=== PATIENT | female | born 1930 | race Caucasian/White ===

== ENCOUNTER 2016-10-14 12:28 | Inpatient (IN) | payer MEDICARE, OTHER ==
[2016-10-14] MEDS ORDERED: AMPICILLIN/SULBACTAM 3 GM in SODIUM CHLORIDE 0.9% MINIBAG 100 ML IV STA (14:23)
[2016-10-14] MEDS ORDERED: ONDANSETRON 4 MG/2 ML VIAL IVP PRN (15:07)
[2016-10-14] MEDS ORDERED: SODIUM CHLORIDE FLUSH 0.9% 10 ML SYRINGE IVP PRN (15:07)
[2016-10-14] MEDS ORDERED: SODIUM CHLORIDE 0.9% 1,000 ML IV ONE (15:21)
[2016-10-14] MEDS ORDERED: SODIUM CHLORIDE 0.9% 1,000 ML IV SCH (16:00)
[2016-10-14] MEDS: KETOROLAC 15 MG/ML VIAL IVP PRN (17:57)
[2016-10-14] MEDS ORDERED: AMPICILLIN/SULBACTAM 1.5 GM in SODIUM CHLORIDE 0.9% MINIBAG 100 ML IV SCH (18:00)
[2016-10-14] MEDS: SODIUM CHLORIDE 0.9% 1,000 ML IV SCH (18:16)
[2016-10-14] MEDS ORDERED: MORPHINE 2 MG/ML SYRINGE IVP PRN (18:53)
[2016-10-14] MEDS: AMPICILLIN/SULBACTAM 1.5 GM in SODIUM CHLORIDE 0.9% MINIBAG 100 ML IV SCH (20:36)
[2016-10-14] MEDS: SODIUM CHLORIDE FLUSH 0.9% 10 ML SYRINGE IVP SCH (20:40)
[2016-10-14] MEDS ORDERED: diphenhydrAMINE 25 MG CAPSULE PO PRN (20:42)
[2016-10-15] MEDS: SODIUM CHLORIDE 0.9% 1,000 ML IV SCH ×2 (01:00→22:03)
[2016-10-15] MEDS: AMPICILLIN/SULBACTAM 1.5 GM in SODIUM CHLORIDE 0.9% MINIBAG 100 ML IV SCH ×4 (01:47→19:58)
[2016-10-15] MEDS ORDERED: ACETAMINOPHEN 325 MG TABLET PO PRN (02:05)
[2016-10-15] MEDS: SODIUM CHLORIDE FLUSH 0.9% 10 ML SYRINGE IVP SCH ×3 (05:03→20:05)
[2016-10-15] MEDS: LOSARTAN 50 MG TABLET PO SCH (08:40)
[2016-10-15] MEDS: METOPROLOL SUCCINATE 25 MG TABLET PO SCH (08:40)
[2016-10-15] MEDS: ENTOCORT 3 MG PO SCH (08:40)
[2016-10-15] MEDS: KETOROLAC 15 MG/ML VIAL IVP PRN (08:40)
[2016-10-15] MEDS: POLYETHYLENE GLYCOL 3350 17 GM PACKET PO SCH (08:42)
[2016-10-15] MEDS: POTASSIUM CHLORIDE 20 MEQ TABLET PO SCH ×2 (09:32→20:00)
[2016-10-16] MEDS: AMPICILLIN/SULBACTAM 1.5 GM in SODIUM CHLORIDE 0.9% MINIBAG 100 ML IV SCH ×2 (02:01→08:43)
[2016-10-16] MEDS: SODIUM CHLORIDE FLUSH 0.9% 10 ML SYRINGE IVP SCH (07:48)
[2016-10-16] MEDS: LOSARTAN 50 MG TABLET PO SCH (08:44)
[2016-10-16] MEDS: POTASSIUM CHLORIDE 20 MEQ TABLET PO SCH (08:44)
[2016-10-16] MEDS: METOPROLOL SUCCINATE 25 MG TABLET PO SCH (08:44)
[2016-10-16] MEDS: POLYETHYLENE GLYCOL 3350 17 GM PACKET PO SCH (08:44)
[2016-10-16] MEDS: ENTOCORT 3 MG PO SCH ×2 (08:46→11:39)
[2016-10-16] MEDS ORDERED: ENOXAPARIN 30 MG/0.3 ML SYRINGE SUBQ SCH (09:00)
== END 2016-10-16 14:25 | disposition home or self-care (01) | DRG 392 ==
DX: K57.92 Diverticulitis of intestine, part unspecified, without perforation or abscess without bleeding (principal); E78.00 Pure hypercholesterolemia, unspecified; M10.9 Gout, unspecified; E87.6 Hypokalemia; I10 Essential (primary) hypertension; K52.839 Microscopic colitis, unspecified; Z79.899 Other long term (current) drug therapy

== ENCOUNTER 2016-11-11 14:48 | Outpatient (CLI) | payer MEDICARE, OTHER | END 2016-11-11 14:49 | disposition critical access hospital (66) | LOC: EMS 14:48 | PROVIDERS: ATTEND Surgery | DX: S01.112A Laceration without foreign body of left eyelid and periocular area, initial encounter (principal); W01.198A Fall on same level from slipping, tripping and stumbling with subsequent striking against other object, initial encounter; Y92.480 Sidewalk as the place of occurrence of the external cause | CPT/HCPCS: A0425; A0429 ==

== ENCOUNTER 2016-11-11 15:13 | Emergency (ER) | payer MEDICARE, OTHER ==
[2016-11-11] MEDS ORDERED: TETANUS/DIPHTHERIA/PERTUSSIS 0.5 ML SYRINGE IM ONE ×2 (15:40→15:55)
--- NOTE | 2016-11-11 16:15 | ED Physician Documentation ---
PD HPI Fall - Stated complaint Stated Complaint: GLF - Chief complaint Chief Complaint: Laceration - History obtained from History obtained from: Patient, Family, EMS - History of Present Illness Mechanism of injury: Tripped (over a step) Fall distance: Standing position Where injury occurred: Street Timing - onset: How many hours ago (1) Injury(ies) location: Head, Left Lower Extremity (knee), Left Hand Pain level max: 3 Pain level now: 3 Quality of pain: Pain, Aching, Dull Associated symptoms: No: LOC, AMS, Amnesia, Seizures, Ear drainage, Nasal drainage, Neck pain, Weakness, Paresthesias, Dyspnea, Nausea / vomiting Symptoms improve with: Rest Worsens with: Movement, Palpation Contributing factors: No: Anticoagulated, Intoxicated Recently seen: Not recently seen Review of Systems Ten Systems: 10 systems reviewed and negative Constitutional: denies: Fever, Chills Eyes: denies: Decreased vision, Photophobia Ears: denies: Ear pain Nose: denies: Rhinorrhea / runny nose, Congestion Throat: denies: Sore throat GI: denies: Nausea, Vomiting, Diarrhea Skin: denies: Rash Musculoskeletal: denies: Neck pain, Back pain Neurologic: denies: Focal weakness, Numbness, Confused, Altered mental status, LOC PD PAST MEDICAL HISTORY - Past Medical History Past Medical History: Yes Cardiovascular: High cholesterol GI: C.difficile, Diverticulitis, Ulcerative colitis Musculoskeletal: Gout - Past Surgical History General: Cholecystectomy - Present Medications Home Medications: Ambulatory Orders Medication Instructions Recorded Confirmed Allopurinol 300 mg PO DAILY 10/14/16 10/14/16 Budesonide [Entocort EC] 3 mg PO DAILY 10/14/16 10/14/16 Losartan [Cozaar] 50 mg PO DAILY 10/14/16 10/14/16 Metoprolol Succinate 25 mg PO DAILY 10/14/16 10/14/16 - Allergies Allergies/Adverse Reactions: Allergies Allergy/AdvReac Type Severity Reaction Status Date / Time ciprofloxacin [From Cipro] Allergy Unknown Verified 10/14/16 14:11 ciprofloxacin HCl * Allergy Unknown Verified 10/14/16 14:11 [From Cipro] hydrocodone bitartrate * Allergy Unknown Verified 10/14/16 14:11 [From Vicodin] metronidazole [From Flagyl] Allergy Unknown Verified 10/14/16 14:11 bio Allergy Unknown Uncoded 10/14/16 14:11 - Social History Does the pt smoke?: No Smoking Status: Never smoker Does the pt drink ETOH?: No Does the pt have substance abuse?: No - Immunizations Immunizations are current?: Yes PD ED PE NORMAL - Vitals Vital signs reviewed: Yes - General General: Alert and oriented X 3, No acute distress, Well developed/nourished - HEENT HEENT: PERRL, EOMI, Moist mucous membranes, Other (2 cm laceration to the left upper forehead) - Neck Neck: Supple, no meningeal sign, No bony TTP - Cardiac Cardiac: RRR, Strong equal pulses - Respiratory Respiratory: No respiratory distress, Clear bilaterally - Abdomen Abdomen: Soft, Non tender, Non distended - Back Back: No spinal TTP - Derm Derm: Warm and dry - Extremities Extremities: Other (Tenderness palpation over the fifth metacarpal of the left hand. Otherwise normal examination of the hand and wrist. Also has abrasions to the left knee, but no bony tenderness. Neurovascularly intact) - Neuro Neuro: Alert and oriented X 3 - Psych Psych: Normal mood, Normal affect Results - Vitals Vitals: Vital Signs - 24 hr 11/11/16 11/11/16 15:14 16:18 Temperature 36.9 C Heart Rate 79 Respiratory 16 16 Rate Blood Pressure 231/100 H 182/63 H O2 Saturation 98 97 Oxygen O2 Source Room air - Rads (name of study) L hand xray Radiology: Prelim report reviewed, EMP read contemporaneously, See rad report ( No acute fracture or dislocation) head CT Radiology: Prelim report reviewed, EMP read contemporaneously, See rad report ( Generalized age-related cortical atrophic changes without evidence of acute intracranial abnormality. ) Procedures - Laceration (location) L forehead Length in cm: 2 Wound type: Linear, Into muscle, Clean, Other (galea intact) Neurovascular status: Sensory intact, Motor intact, Vascular intact Anesthesia: Marcaine 0.5% with epi Wound Preparation: Irrigated copiously NS, Wound explored, To the base. No: FB identified, FB removed Skin layer closure: Nylon, Interrupted, Size #-0 - enter number (4) Other: Patient tolerated well, No complications, Neurovascular intact, Dressing applied, Tetanus booster given (tdap) Complexity: Simple PD MEDICAL DECISION MAKING - ED course Complexity details: reviewed results, re-evaluated patient, considered differential, d/w patient, d/w family ED course: Patient is an 86-year-old female status post a ground-level fall earlier today. Laceration was repaired. No acute findings on x-ray or head CT. Ambulating well in the emergency department. Declines pain medication here. Head injury instructions given at bedside. Patient and family counseled regarding signs and symptoms for which I believe and urgent re-evaluation would be necessary. Patient with good understanding of and agreement to plan and is comfortable going home at this time This document was made in part using voice recognition software. While efforts are made to proofread this document, sound alike and grammatical errors may occur. Departure - Departure Disposition: 01 Home, Self Care Clinical Impression: Facial laceration Qualifiers: Encounter type: initial encounter Qualified Code(s): S01.81XA - Laceration without foreign body of other part of head, initial encounter Head injury Qualifiers: Encounter type: initial encounter Qualified Code(s): S09.90XA - Unspecified injury of head, initial encounter Hand contusion Qualifiers: Encounter type: initial encounter Laterality: left Qualified Code(s): S60.222A - Contusion of left hand, initial encounter Condition: Good Instructions: ED Head Injury Closed, ED Laceration Facial Sutr Tape Follow-Up: Tyesha Zeng MD [Primary Care Provider] - (in 7-10 days for suture removal. ) Comments: Your CT and xrays are normal today. You need to take your blood pressure medications at home. You can use motrin or tylenol for pain. Return if you worsen. Discharge Date/Time: 11/11/16 17:14
[2016-11-11 16:18] VITALS: BP 182/63
--- NOTE | 2016-11-11 16:46 | XRAY Preliminary Report ---
Exam: XR Hand 3 View LT IMPRESSION: No evidence of fracture or dislocation. [facility] SITE ID: [id number]
--- NOTE | 2016-11-11 16:49 | XRAY Report ---
EXAM: LEFT HAND RADIOGRAPHY EXAM DATE: 11/11/2016 04:34 PM. CLINICAL HISTORY: Fall, hand pain. COMPARISON: None. TECHNIQUE: 3 views. FINDINGS: Bones: No fracture or focal bony lesion. Bones are osteopenic. Joints: No evidence of dislocation. There is fusion of the fifth distal interphalangeal joint. Soft Tissues: No unexpected soft tissue findings. IMPRESSION: No evidence of fracture or dislocation. [facility] Referring Provider Line: [phone] SITE ID: [id number]
--- NOTE | 2016-11-11 16:53 | CT Preliminary Report ---
Exam: CT Head W/O IMPRESSION: Generalized age-related cortical atrophic changes without evidence of acute intracranial abnormality. [facility] SITE ID: [id number]
--- NOTE | 2016-11-11 16:55 | CT Report ---
EXAM: CT HEAD EXAM DATE: 11/11/2016 04:39 PM. CLINICAL HISTORY: Head injury. COMPARISON: None. TECHNIQUE: Multiaxial CT images were obtained from the foramen magnum to the vertex. IV contrast: Non e. Reformats: Coronal. In accordance with CT protocol optimization, one or more of the following dose reduction techniques w ere utilized for this exam: automated exposure control, adjustment of mA and/or KV based on patient s ize, or use of iterative reconstructive technique. FINDINGS: Parenchyma: No intraparenchymal hemorrhage. No evidence of mass, midline shift, or CT findings of acu te infarction. Velez-white differentiation is distinct. Extraaxial Spaces: Normal for age. No subdural or epidural collections identified. Ventricles: The ventricles and cortical sulci are enlarged, consistent with age-related tissue loss. Sinuses: Imaged paranasal sinuses, orbits, and mastoids show no significant abnormality. Bones: No evidence of fracture or calvarial defect. Other: Mild chronic microangiopathic white matter changes are evident. IMPRESSION: Generalized age-related cortical atrophic changes without evidence of acute intracranial abnormality. [facility] Referring Provider Line: [phone] SITE ID: [id number]
== END 2016-11-11 17:14 | disposition home or self-care (01) ==
LOC: EDUNIT# → ED 15:13
DX: S01.81XA Laceration without foreign body of other part of head, initial encounter (principal); S09.90XA Unspecified injury of head, initial encounter; S60.222A Contusion of left hand, initial encounter; S80.212A Abrasion, left knee, initial encounter; W01.0XXA Fall on same level from slipping, tripping and stumbling without subsequent striking against object, initial encounter; Y92.480 Sidewalk as the place of occurrence of the external cause; Z23 Encounter for immunization
CPT/HCPCS: 12011; 70450; 90471; 99283

== ENCOUNTER 2017-03-12 23:32 | Outpatient (CLI) | payer MEDICARE, OTHER | END 2017-03-12 23:33 | disposition critical access hospital (66) | LOC: EMS 23:32 | PROVIDERS: ATTEND Surgery | DX: M25.552 Pain in left hip (principal); W01.0XXA Fall on same level from slipping, tripping and stumbling without subsequent striking against object, initial encounter; Y92.009 Unspecified place in unspecified non-institutional (private) residence as the place of occurrence of the external cause | CPT/HCPCS: A0425; A0429 ==

== ENCOUNTER 2017-03-12 23:45 | Inpatient (IN) | payer MEDICARE, OTHER ==
[2017-03-12] MEDS ORDERED: ACETAMINOPHEN 325 MG TABLET PO STA (23:57)
[2017-03-13] MEDS ORDERED: ACETAMINOPHEN 325 MG TABLET PO ONE (00:07)
--- NOTE | 2017-03-13 01:16 | ED Physician Documentation ---
PD HPI LOWER EXT INJURY - Stated complaint Stated Complaint: FALL/HIP PAIN - Chief complaint Chief Complaint: Ext Problem - History obtained from History obtained from: Patient, Family, EMS - History of Present Illness PD HPI LOW EXT INJURY LOCATION: Left, Hip Type of injury: Fall Where injury occurred: Home Timing - onset: How many minutes ago (30) Timing - details: Abrupt onset Improved by: Immobilization Worsened by: Moving, Palpating Associated symptoms: Tingling, Discolored Contributing factors: No: Anticoagulated, Prior ortho surgery Similar symptoms before: Has not had sx before Recently seen: Not recently seen - Additional information Additional information: Patient is an 86 year old female presenting to the emergency department for left hip pain. According to patient and family she was walking to go to bed, and turned around because she forgot her water glass and caught her foot on the carpet, tripping and landing on her left side. Patient states that she has pain in her left hip and her left knee. Review of Systems Constitutional: denies: Fever, Chills Eyes: denies: Loss of vision, Decreased vision Ears: denies: Ear pain, Drainage/discharge Nose: denies: Epistaxis Throat: denies: Dental pain / toothache Cardiac: denies: Chest pain / pressure, Palpitations Respiratory: denies: Dyspnea, Cough GI: denies: Nausea, Vomiting : reports: Reviewed and negative Skin: denies: Lesions, Abrasion (s) Musculoskeletal: reports: Extremity pain, Joint pain, Extremity swelling, Joint swelling, Pain with weight bearing Neurologic: denies: Syncope, Headache, Head injury, LOC Immunocompromised: denies: Immunocompromised PD PAST MEDICAL HISTORY - Past Medical History Cardiovascular: High cholesterol GI: C.difficile, Diverticulitis, Ulcerative colitis Musculoskeletal: Gout - Past Surgical History General: Cholecystectomy - Present Medications Home Medications: Ambulatory Orders Medication Instructions Recorded Confirmed Allopurinol 300 mg PO DAILY 10/14/16 10/14/16 Budesonide [Entocort EC] 3 mg PO DAILY 10/14/16 10/14/16 Losartan [Cozaar] 50 mg PO DAILY 10/14/16 10/14/16 Metoprolol Succinate 25 mg PO DAILY 10/14/16 10/14/16 - Allergies Allergies/Adverse Reactions: Allergies Allergy/AdvReac Type Severity Reaction Status Date / Time ciprofloxacin [From Cipro] Allergy Unknown Verified 03/12/17 23:54 ciprofloxacin HCl * Allergy Unknown Verified 03/12/17 23:54 [From Cipro] hydrocodone bitartrate * Allergy Unknown Verified 03/12/17 23:54 [From Vicodin] metronidazole [From Flagyl] Allergy Unknown Verified 03/12/17 23:54 bio Allergy Unknown Uncoded 10/14/16 14:11 - Social History Does the pt smoke?: No Smoking Status: Never smoker Does the pt drink ETOH?: No Does the pt have substance abuse?: No - Immunizations Immunizations are current?: Yes PD ED PE NORMAL - Vitals Vital signs reviewed: Yes - General General: Alert and oriented X 3 - HEENT HEENT: Atraumatic, PERRL, Moist mucous membranes - Neck Neck: No bony TTP - Cardiac Cardiac: RRR, No murmur - Respiratory Respiratory: No respiratory distress - Abdomen Abdomen: Soft, Non tender, Non distended - Derm Derm: Normal color - Neuro Neuro: Alert and oriented X 3, No sensory deficit, Normal speech - Psych Psych: Normal mood, Normal affect PD ED PE EXPANDED - Extremities Extremities: Left hip (tenderness to palpation with gross deformity and leg length discrepancy), Left knee (mild tenderness to palpation) Results - Vitals Vitals: Vital Signs - 24 hr 03/12/17 03/13/17 23:48 01:12 Temperature 37 C Heart Rate 64 62 Respiratory 20 18 Rate Blood Pressure 209/78 H 208/79 H O2 Saturation 95 100 Oxygen O2 Source Room air - Labs Labs: Laboratory Tests 03/13/17 03/13/17 03/13/17 01:25 01:25 01:25 WBC 7.7 RBC 3.88 L Hgb 12.6 Hct 36.7 L MCV 94.5 MCH 32.4 H MCHC 34.2 RDW 14.1 Plt Count 282 MPV 7.4 L Neut # 5.2 Lymph # 1.9 Gentry # 0.5 Eos # 0.1 Baso # 0.1 Absolute Nucleated RBC 0.00 Nucleated RBC % 0.0 PT 11.2 INR 1.0 APTT 24.0 L Sodium 134 L Potassium 3.7 Chloride 101 Carbon Dioxide 23 Anion Gap 10.0 BUN 20 Creatinine 0.8 Estimated GFR (MDRD) 68 L Glucose 93 Calcium 9.4 Total Bilirubin 0.4 AST 24 ALT 18 Alkaline Phosphatase 52 Total Protein 7.1 Albumin 3.8 Globulin 3.3 Albumin/Globulin Ratio 1.2 Lipase 39 - Rads (name of study) left hip x-ray Radiology: Final report received (sub capital left femure fracutre) PD MEDICAL DECISION MAKING - ED course Complexity details: reviewed old records, reviewed results, re-evaluated patient , considered differential, d/w patient, d/w family, d/w service loss control consultant ED course: Patient was seen and examined at bedside. Patient was sent for imaging. when patient returned the results were reviewed. there was a left sided hip fracture. Dr. Goins was consulted who stated that the patient was appropriate for [place] and that Dr. Giordano would see the patient tomorrow. IV access was gained and labs were drawn. patient was treated with morphine 2mg. hospitalist was contacted and the case was discussed with her. Patient was admitted for further evaluation and care. Departure - Departure Disposition: 66 [facility] DC/Xfer Clinical Impression: Left displaced femoral neck fracture Condition: Stable
[2017-03-13 01:37] LABS: BASOPHILS # (AUTO) 0.1 10^3/uL (0.0-0.1); BASOPHILS % (AUTO) 1.7 %; EOSINOPHILS # (AUTO) 0.1 10^3/uL (0.0-0.7); EOSINOPHILS % (AUTO) 1.4 %; HCT - HEMATOCRIT 36.7 % (37.0-47.0); HGB - HEMOGLOBIN 12.6 g/dL (12.0-16.0); LYMPHOCYTES # (AUTO) 1.9 10^3/uL (1.5-3.5); MEAN CORPUSCULAR HEMOGLOBIN 32.4 pg (27.0-31.0); MEAN CORPUSCULAR HGB CONC 34.2 g/dL (32.0-36.0); MEAN CORPUSCULAR VOLUME 94.5 fL (81.0-99.0); MEAN PLATELET VOLUME 7.4 fL (7.9-10.8); MONOCYTES # (AUTO) 0.5 10^3/uL (0.0-1.0); MONOCYTES % (AUTO) 6.3 %; NEUTROPHILS # (AUTO) 5.2 10^3/uL (1.5-6.6); NEUTROPHILS % (AUTO) 66.6 %; RED BLOOD COUNT 3.88 10^6/uL (4.20-5.40); RED CELL DISTRIBUTION WIDTH 14.1 % (12.0-15.0); UNCORRECTED WHITE BLOOD COUNT 7.7 x10^3/uL; WHITE BLOOD COUNT 7.7 x10^3/uL (4.8-10.8)
[2017-03-13 01:42] LABS: PT - PROTHROMBIN TIME 11.2 secs (9.9-12.6)
--- NOTE | 2017-03-13 01:42 | XRAY Preliminary Report ---
Exam: XR Hip w/Pelvis 2-3V LT IMPRESSION: 1. Osteopenia with subcapital left hip fracture. 2. 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 [facility] SITE ID: [id number]
--- NOTE | 2017-03-13 01:44 | XRAY Preliminary Report ---
Exam: XR Knee 2 View LT IMPRESSION: 1. No acute fracture or dislocation seen. [facility] SITE ID: [id number]
--- NOTE | 2017-03-13 01:45 | XRAY Report ---
EXAM: LEFT HIP AND PELVIS RADIOGRAPHY EXAM DATE: 03/13/2017 01:04 AM. HISTORY: Fall, left sided hip pain. COMPARISONS: 01/12/2015. TECHNIQUE: 1 view of the pelvis and 1 view of the hip. FINDINGS: Bones: Osteopenia. Subcapital left hip fracture. Joints: No dislocation. 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 Soft Tissues: Grossly unremarkable. IMPRESSION: 1. Osteopenia with subcapital left hip fracture. 2. 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 [facility] Referring Provider Line: [phone] SITE ID: [id number]
--- NOTE | 2017-03-13 01:45 | XRAY Preliminary Report ---
Exam: XR Chest 1 View IMPRESSION: 1. Mild cardiomegaly and mild left basilar atelectasis. 2. No acute abnormality seen. [facility] SITE ID: [id number]
--- NOTE | 2017-03-13 01:47 | XRAY Report ---
EXAM: LEFT KNEE RADIOGRAPHY EXAM DATE: 03/13/2017 01:05 AM. CLINICAL HISTORY: Fall, hip and knee pain. COMPARISON: None. TECHNIQUE: 2 views. FINDINGS: Bones: Osteopenia. No acute fracture seen. Joints: No dislocation. Joint spaces are fairly well preserved for age. No joint effusion. Soft Tissues: Vascular calcifications. IMPRESSION: 1. No acute fracture or dislocation seen. [facility] Referring Provider Line: [phone] SITE ID: [id number]
[2017-03-13] MEDS ORDERED: MORPHINE 10 MG/ML VIAL IVP STA (01:48)
--- NOTE | 2017-03-13 01:48 | XRAY Report ---
EXAM: CHEST RADIOGRAPHY EXAM DATE: 03/13/2017 01:06 AM. CLINICAL HISTORY: Left hip fracture. Preoperative exam for fracture repair. COMPARISON: None. TECHNIQUE: 1 view. FINDINGS: Lungs/Pleura: No alveolar consolidation or pleural effusion seen. Mild left basilar atelectasis. No p neumothorax. Mediastinum: Mild cardiomegaly. Aortic atherosclerosis. Other: None. IMPRESSION: 1. Mild cardiomegaly and mild left basilar atelectasis. 2. No acute abnormality seen. [facility] Referring Provider Line: [phone] SITE ID: [id number]
[2017-03-13 01:49] LABS: ALBUMIN/GLOBULIN RATIO 1.2 (1.0-2.2); BILIRUBIN,TOTAL 0.4 mg/dL (0.2-1.0); CALCIUM 9.4 mg/dL (8.5-10.3); CREATININE 0.8 mg/dL (0.4-1.0); POTASSIUM 3.7 mmol/L (3.5-5.0); TOTAL PROTEIN 7.1 g/dL (6.7-8.2)
[2017-03-13] MEDS ORDERED: ONDANSETRON 4 MG/2 ML VIAL IVP PRN (02:14)
[2017-03-13] MEDS ORDERED: MORPHINE 2 MG/ML SYRINGE ONE (02:16)
[2017-03-13] MEDS ORDERED: hydrALAZINE INJ 20 MG/ML VIAL IVP PRN (02:34)
[2017-03-13] MEDS ORDERED: SODIUM CHLORIDE 0.9% 1,000 ML IV SCH (03:00)
[2017-03-13] MEDS: MORPHINE 2 MG/ML SYRINGE IVP PRN ×4 (03:10→22:40)
[2017-03-13] MEDS: SODIUM CHLORIDE FLUSH 0.9% 10 ML SYRINGE IVP SCH ×3 (03:11→18:24)
[2017-03-13] MEDS: SODIUM CHLORIDE FLUSH 0.9% 10 ML SYRINGE IVP PRN (03:46)
--- NOTE | 2017-03-13 03:57 | HISTORY & PHYSICAL EXAMINATION ---
DATE OF ADMISSION: 03/13/2017 Her CODE STATUS is a FULL CODE. Her PCP is Delroy Ramirez. Her exam limitations were none. Her records were reviewed. The source of information was the patient and she does have an advanced directive present. CHIEF COMPLAINT: Left hip pain. 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 She lost her balance, fell and fractured her left hip. ALLERGIES: 1. CIPRO. 2. BIAXIN. 3. FLAGYL. 4. VICODIN. HOME MEDICATIONS: 1. Metoprolol 25 mg 1 tab p.o. every day. 2. Losartan 50 mg 1 tab p.o. every day. 3. Budesonide 3 mg 1 tab p.o. every day. 4. Allopurinol 300 mg 1 tab p.o. every day. PAST MEDICAL HISTORY: Hypertension and gout. PAST SURGICAL HISTORY: Cholecystectomy, left foot surgery, thyroglossal cyst removal and hysterectomy with ovaries left in place. FAMILY HISTORY: Mother had TIAs and brother had cancer. SOCIAL HISTORY: She is . She has one child. She is a retired senior gl accountant. She never smoked, and she drinks alcohol socially. No recreational drug abuse. She lives at home with her . REVIEW OF SYSTEMS: RESPIRATORY: No coughing, no shortness of breath. HEART: No chest pain, no palpitations. ABDOMEN: No constipation, no diarrhea, no bloating, no nausea or vomiting. No abdominal pain. URINARY SYSTEM: No burning urine. HEAD: No headaches. EYES: No blurred vision. EARS: Decreased hearing. NOSE: No runny nose. THROAT: No pain or redness. MUSCULOSKELETAL: Left hip pain. NEUROLOGICAL: No aphasia. No limb weakness. Weakness and fatigue and fever is no. PHYSICAL EXAMINATION: VITAL SIGNS: Temperature of 37 degrees Celsius, pulse of 64, respiratory rate of 20, blood pressure of 209/78, O2 saturation of 100% on room air. HEENT: Her head is atraumatic, normocephalic. Eyes are PERRLA, EOMI. NECK: Supple. No JVD, no bruits, no thyroid enlargement. No adenopathy. HEART: RRR. LUNGS: Clear to auscultation. ABDOMEN: Positive for bowel sounds, soft, nontender. No rebound, no guarding. EXTREMITIES: Warm. No edema. She has 5/5 muscle strength in upper extremities and in her right leg. NEUROLOGIC: She is oriented x3, follows commands. Cranial nerves 2-12 are intact. LABORATORY DATA: Sodium is 134, potassium is 3.7, chloride is 101, bicarbonate is 23, BUN is 20, creatinine 0.8, glucose is 93. White blood cells are 7.7, hemoglobin is 12.6, hematocrit 36.7, platelets are 282,000. Glomerular filtration rate is 68. PT is 11.2, INR is 1, PTT is 24, alkaline phosphatase is 52, ALT is 18, AST is 24, lipase is 39. EKG findings are normal sinus rhythm and left ventricular hypertrophy. RADIOLOGICAL FINDINGS: Chest x-ray shows mild cardiomegaly and aortic atherosclerosis. The left knee shows no acute fracture or dislocation. The left hip x-ray shows osteopenia with subcapital left hip fracture and mild to moderate degenerative joint disease. ASSESSMENT AND PLAN: She has a subcapital left hip fracture that will be repaired by Dr. Giordano in the morning. Her hypertension will be treated with IV hydralazine 5 mg p.r.n. every 6 hours for a systolic blood pressure greater than 150 for the next couple of hours before she receives surgery. Her pain from the left hip fracture will be managed with IV Morphine sulfate 2 mg q.4h. p.r.n. pain and IV toradol. Her nausea will be managed with IV Zofran 4 mg q.6h. p.r.n. nausea. She will receive IV Protonix 40 mg every day to prevent stress ulcer. She is currently on IV 0.9 normal saline at 75 mL per hour. Her deep vein thrombosis prophylaxis will be knee compression stockings. Her home medications of metoprolol 25 mg a tab p.o. every day, Losartan 50 mg a tab p.o. every day and Budesonide 3 mg 1 tab p.o. every day to control her blood pressure can be resumed after surgery when she can eat. Her allopurinol 300 mg 1 tab p.o. every day to treat her gout can be restarted once she is finished with the left hip surgery. Her anticipated length of stay will be about 4 days. She does have compression stockings ordered to prevent deep vein thrombosis. JOB #: [id number] EXT JOB #:[id number] ZAK[facility]
[2017-03-13] MEDS: KETOROLAC 30 MG/ML VIAL IVP PRN ×3 (04:25→18:23)
[2017-03-13] MEDS: PANTOPRAZOLE 40 MG VIAL IVP SCH (06:34)
[2017-03-13] MEDS: SODIUM CHLORIDE 0.9% 1,000 ML IV SCH ×2 (09:08→14:41)
[2017-03-13] MEDS: POLYETHYLENE GLYCOL 3350 17 GM PACKET PO SCH (10:43)
--- NOTE | 2017-03-13 16:05 | PROVIDER PROGRESS NOTE ---
Subjective - Prog Note Date Prog Note Date: 03/13/17 - Subjective Pt reports feeling: Improved Subjective: pt feel better, but still feel pain when she move her left hip and leg Current Medications - Current Medications Current Medications: Active Medications Hydralazine HCl (Apresoline Inj) 5 mg IVP PRN PRN PRN Reason: SBP>150 Sodium Chloride (Normal Saline 0.9%) 1,000 mls @ 100 mls/hr IV .Q10H GLENDY Last Admin: 03/13/17 14:41 Dose: 100 mls/hr Ketorolac Tromethamine (Toradol Inj) 30 mg IVP Q6HR PRN PRN Reason: PAIN Stop: 03/14/17 04:05 Last Admin: 03/13/17 10:44 Dose: 30 mg Morphine Sulfate (Morphine) 2 mg IVP Q4H PRN PRN Reason: Pain 8 to 10 Last Admin: 03/13/17 09:05 Dose: 2 mg Ondansetron HCl (Zofran Inj) 4 mg IVP Q6HR PRN PRN Reason: Nausea / Vomiting Last Admin: 03/13/17 03:46 Dose: 4 mg Pantoprazole Sodium (Protonix) 40 mg IVP QDAC [facility] Last Admin: 03/13/17 06:34 Dose: 40 mg Polyethylene Glycol (Miralax) 17 gm PO DAILY [facility] Last Admin: 03/13/17 10:43 Dose: Not Given Sodium Chloride (Normal Saline Flush 0.9%) 10 ml IVP PRN PRN PRN Reason: NEEDED PER PROVIDER ORDERS Last Admin: 03/13/17 03:46 Dose: 10 ml Sodium Chloride (Normal Saline Flush 0.9%) 10 ml IVP Q8HR [facility] Last Admin: 03/13/17 14:37 Dose: 10 ml Allopurinol 300 mg PO QPM 10/14/16 Losartan [Cozaar] 50 mg PO BID 10/14/16 Metoprolol Succinate 25 mg PO DAILY 10/14/16 Budesonide [Budesonide EC] 3 mg PO DAILY 03/13/17 Furosemide 20 mg PO BID 03/13/17 Objective - Vital Signs/Intake & Output Reviewed Vital Signs: Yes Vital Signs: Vital Signs x48h Temp Pulse Resp BP Pulse Ox 03/13/17 15:32 37.1 C 67 18 146/55 H 96 03/13/17 11:30 89 20 145/64 H 98 Intake & Output: Intake & Output 03/10/17 03/11/17 03/12/17 03/13/17 23:59 23:59 23:59 23:59 Intake Total 1955 Output Total 500 Balance 1455 - Objective General Appearance: positive: No acute distress, Alert. negative: Lethargic Eyes Bilateral: positive: Normal inspection, PERRL, EOMI, No lid inflammation, Conjunctivae nml ENT: positive: ENT inspection nml, Pharynx nml, No signs of dehydration. negative: Purulent nasal drainage, Pharyngeal erythema, Oral lesions Neck: positive: Nml inspection, Thyroid nml, No JVD, Trachea midline. negative : Thyromegaly, Lymphadenopathy (R), Lymphadenopathy (L), Stiff neck, Carotid bruit, Swelling/bruising, Tracheal deviation Respiratory: positive: Chest non-tender, No respiratory distress, Breath sounds nml. negative: Wheezes, Rales, Rhonchi Cardiovascular: positive: Regular rate & rhythm, No murmur, No gallop. negative : Irregularly irregular, Extrasystoles, Tachycardia, Bradycardia, Systolic murmur, Diastolic murmur Peripheral Pulses: 2+ Radial (R), 2+ Radial (L), 2+ Dorsalis pedis (R), 2+ Dorsalis pedis (L) Abdomen: positive: Non-tender, Nml bowel sounds, No distention. negative: Tenderness, Guarding, Rebound Back: positive: Nml inspection. negative: CVA tenderness (R), CVA tenderness (L ) Skin: positive: Color nml, No rash, Warm, Dry. negative: Cyanosis, Diaphoresis , Pallor, Skin rash Extremities: positive: Non-tender, Full ROM, Nml appearance. negative: Calf tenderness, Joint swelling, Mariya's sign/cords Neurologic/Psychiatric: positive: Oriented x3, Motor nml, Sensation nml, Mood/ affect nml. negative: Sensory loss, Facial droop, Slurred/abnml speech, Depressed mood/affect - Lab Results Fish Bones: 03/13/17 01:25 03/13/17 01:25 Assessment/Plan - Problem List (1) Left displaced femoral neck fracture Impression: discuss with surgeon, pt is planed to have surgery on tomorrow afternoon it appears lower cardiac risk for post operation complication, according [facility] measure pain control NPO after tomorrow breakfast daily lab, vital monitor (2) Hypertension Impression: stable, resume home BP meds, metoprolol, losartan. Hydralazine PRN vital monitor (3) Gout Impression: stable, resume home meds allopurinal
[2017-03-13] MEDS: FUROSEMIDE 20 MG TABLET PO SCH (18:57)
[2017-03-13] MEDS: ALLOPURINOL 100 MG TABLET PO SCH (20:37)
[2017-03-13] MEDS: LOSARTAN 50 MG TABLET PO SCH (20:37)
[2017-03-13] MEDS ORDERED: BUDESONIDE 3 MG CAPSULE PO SCH (21:10)
[2017-03-14] MEDS: SODIUM CHLORIDE 0.9% 1,000 ML IV SCH ×3 (00:23→22:49)
[2017-03-14] MEDS: KETOROLAC 30 MG/ML VIAL IVP PRN (00:30)
[2017-03-14] MEDS: MORPHINE 2 MG/ML SYRINGE IVP PRN ×5 (02:24→21:33)
[2017-03-14] MEDS: SODIUM CHLORIDE FLUSH 0.9% 10 ML SYRINGE IVP SCH ×3 (06:22→22:50)
[2017-03-14] MEDS: PANTOPRAZOLE 40 MG VIAL IVP SCH (06:22)
[2017-03-14] MEDS: FUROSEMIDE 20 MG TABLET PO SCH (06:24)
[2017-03-14 06:43] LABS: BASOPHILS % (AUTO) 0.4 %; EOSINOPHILS # (AUTO) 0.2 10^3/uL (0.0-0.7); EOSINOPHILS % (AUTO) 2.5 %; HCT - HEMATOCRIT 35.8 % (37.0-47.0); LYMPHOCYTES # (AUTO) 0.8 10^3/uL (1.5-3.5); LYMPHOCYTES % (AUTO) 8.9 %; MEAN CORPUSCULAR HEMOGLOBIN 32.3 pg (27.0-31.0); MEAN CORPUSCULAR HGB CONC 33.4 g/dL (32.0-36.0); MEAN CORPUSCULAR VOLUME 96.6 fL (81.0-99.0); MEAN PLATELET VOLUME 7.6 fL (7.9-10.8); MONOCYTES # (AUTO) 0.5 10^3/uL (0.0-1.0); NEUTROPHILS # (AUTO) 7.8 10^3/uL (1.5-6.6); NEUTROPHILS % (AUTO) 83.2 %; RED BLOOD COUNT 3.71 10^6/uL (4.20-5.40); UNCORRECTED WHITE BLOOD COUNT 9.3 x10^3/uL; WHITE BLOOD COUNT 9.3 x10^3/uL (4.8-10.8)
[2017-03-14] MEDS ORDERED: KETOROLAC 15 MG/ML VIAL IVP ONE ×2 (06:45→17:44)
[2017-03-14 06:56] LABS: ALBUMIN/GLOBULIN RATIO 1.1 (1.0-2.2); BILIRUBIN,TOTAL 0.9 mg/dL (0.2-1.0); CREATININE 1.1 mg/dL (0.4-1.0); MAGNESIUM 1.8 mg/dL (1.7-2.8); POTASSIUM 3.8 mmol/L (3.5-5.0); TOTAL PROTEIN 5.7 g/dL (6.7-8.2)
[2017-03-14] MEDS: POLYETHYLENE GLYCOL 3350 17 GM PACKET PO SCH (07:52)
[2017-03-14] MEDS: LOSARTAN 50 MG TABLET PO SCH ×2 (08:49→22:49)
[2017-03-14] MEDS: BUDESONIDE 3 MG CAPSULE PO SCH (08:49)
[2017-03-14] MEDS: METOPROLOL SUCCINATE 25 MG TABLET PO SCH (08:49)
[2017-03-14] MEDS: SODIUM CHLORIDE FLUSH 0.9% 10 ML SYRINGE IVP PRN ×2 (09:45→21:33)
[2017-03-14] MEDS ORDERED: SODIUM CHLORIDE 0.9% 1,000 ML IV ONE (14:31)
--- NOTE | 2017-03-14 16:49 | PROVIDER PROGRESS NOTE ---
Subjective - Prog Note Date Prog Note Date: 03/14/17 Prog Note Time: 16:36 (seen ~ 8 am, and 3:45 pm) - Subjective Pt reports feeling: No change Subjective: definately a mechanical fall, no lightheadedness, SOB, palpitations pain fairly well controlled w/ morphine confirms she is Jefhovahs Witness, no blood product Current Medications - Current Medications Current Medications: Active Medications Generic Name Dose Route Start Last Admin Trade Name Freq PRN Reason Stop Dose Admin Allopurinol 300 mg 03/13/17 21:00 03/13/17 20:37 Zyloprim PO 300 mg QPM GLENDY Administration Budesonide 3 mg 03/14/17 09:00 03/14/17 08:49 Entocort Ec PO Not Given DAILY GLENDY Hydralazine HCl 5 mg 03/13/17 02:34 Apresoline Inj IVP PRN PRN SBP>150 Sodium Chloride 1,000 mls @ 100 mls/hr 03/13/17 09:00 03/14/17 09:46 Normal Saline 0.9% IV 100 mls/hr .Q10H GLENDY Administration Losartan Potassium 50 mg 03/13/17 21:00 03/14/17 08:49 Cozaar PO Not Given BID GLENDY Metoprolol Succinate 25 mg 03/14/17 09:00 03/14/17 08:49 Toprol Xl PO 25 mg DAILY GLENDY Administration Morphine Sulfate 2 mg 03/13/17 02:14 03/14/17 13:02 Morphine IVP 2 mg Q4H PRN Administration Pain 8 to 10 Ondansetron HCl 4 mg 03/13/17 02:14 03/13/17 03:46 Zofran Inj IVP 4 mg Q6HR PRN Administration Nausea / Vomiting Polyethylene Glycol 17 gm 03/13/17 09:00 03/14/17 07:52 Miralax PO Not Given DAILY GLENDY Sodium Chloride 10 ml 03/13/17 02:14 03/14/17 09:45 Normal Saline Flush 0.9% IVP 10 ml PRN PRN Administration NEEDED PER PROVIDER ORDERS Sodium Chloride 10 ml 03/13/17 06:00 03/14/17 13:37 Normal Saline Flush 0.9% IVP Not Given Q8HR GLENDY Allopurinol 300 mg PO QPM 10/14/16 Losartan [Cozaar] 50 mg PO BID 10/14/16 Metoprolol Succinate 25 mg PO DAILY 10/14/16 Budesonide [Budesonide EC] 3 mg PO DAILY 03/13/17 Furosemide 20 mg PO BID 03/13/17 Objective - Vital Signs/Intake & Output Reviewed Vital Signs: Yes Vital Signs: Vital Signs x48h Temp Pulse Resp BP Pulse Ox 03/14/17 16:03 37.8 C H 68 20 168/67 H 96 03/14/17 10:53 36.9 C 74 20 145/60 H 96 Intake & Output: Intake & Output 03/11/17 03/12/17 03/13/17 03/14/17 23:59 23:59 23:59 23:59 Intake Total 2645 2228.333 Output Total 1200 1800 Balance 1445 428.333 - Objective General Appearance: positive: No acute distress, Other (lying in bed, family present had breakfaast shortly before 9a, so surgery postponed til late in day) Respiratory: positive: No respiratory distress, Breath sounds nml Cardiovascular: positive: Regular rate & rhythm, No murmur. negative: Extrasystoles, Tachycardia Abdomen: positive: Nml bowel sounds, No distention. negative: Tenderness Skin: positive: Warm, Dry Extremities: positive: No pedal edema, Other (LLE shortened and externally rotated) Neurologic/Psychiatric: positive: Oriented x3, Other (hard of hearing) - Lab Results Fish Bones: 03/14/17 05:50 03/14/17 05:50 Other Labs: Lab Results x24hrs 03/14/17 03/14/17 Range/Units 05:50 05:50 WBC 9.3 (4.8-10.8) x10^3/uL RBC 3.71 L (4.20-5.40) 10^6/uL Hgb 12.0 (12.0-16.0) g/dL Hct 35.8 L (37.0-47.0) % MCV 96.6 (81.0-99.0) fL MCH 32.3 H (27.0-31.0) pg MCHC 33.4 (32.0-36.0) g/dL RDW 14.0 (12.0-15.0) % Plt Count 219 (130-450) 10^3/uL MPV 7.6 L (7.9-10.8) fL Neut # 7.8 H (1.5-6.6) 10^3/uL Lymph # 0.8 L (1.5-3.5) 10^3/uL [place] # 0.5 (0.0-1.0) 10^3/uL Eos # 0.2 (0.0-0.7) 10^3/uL Baso # 0.0 (0.0-0.1) 10^3/uL Absolute Nucleated RBC 0.00 x10^3/uL Nucleated RBC % 0.0 /100WBC Sodium 137 (135-145) mmol/L Potassium 3.8 (3.5-5.0) mmol/L Chloride 109 (101-111) mmol/L Carbon Dioxide 22 (21-32) mmol/L Anion Gap 6.0 (6-13) BUN 22 H (6-20) mg/dL Creatinine 1.1 H (0.4-1.0) mg/dL Estimated GFR (MDRD) 47 L (>89) Glucose 117 H (70-100) mg/dL Calcium 8.0 L (8.5-10.3) mg/dL Magnesium 1.8 (1.7-2.8) mg/dL Total Bilirubin 0.9 (0.2-1.0) mg/dL AST 51 H (10-42) IU/L ALT 53 (10-60) IU/L Alkaline Phosphatase 56 (42-121) IU/L Total Protein 5.7 L (6.7-8.2) g/dL Albumin 3.0 L (3.2-5.5) g/dL Globulin 2.7 (2.1-4.2) g/dL Albumin/Globulin Ratio 1.1 (1.0-2.2) Assessment/Plan - Problem List (1) Left displaced femoral neck fracture Impression: 1) Left displaced femoral neck fracture Impression: For surgery today by Dr. Giordano will follow up on EBL (addendum 9pm (200 cc per op note and VTE prophylaxis ( per / ignacia ASA 325 mg) Pt is Jehovahs witness Hgb 12. 6 on admit, 12.0 today (refuses perioperative blood product) RCRI risk score preop ; 0.4% risk of acute event. No known CAD, no CHF, no ischemic symptoms, nl creatinine , not diabetic/ no insulin (Appears sl port drier today after getting IV toradol and lasix yestereday; holding lasix, and stopped toradol) No indication for GI prophylaxis in this patient; will d/c iv PPI 10/2discuss with surgeon, pt is planed to have surgery on tomorrow afternoon it appears lower cardiac risk for post operation complication, according Kings measure pain control NPO after tomorrow breakfast daily lab, vital monitor (2 Hypertension Impression: stable continue home beta candace and resume home ARB when warranted post op as BP warrants stop prn hydralazine no indication to acutely treat SBP > 150 w/o EOD and evidence is risk of hydralazine acutely dropping pressure outweighs benefit of acutely lowering asymptomatic bp (3) Gout Impression: stable, resume home meds allopurinal post op
[2017-03-14] MEDS ORDERED: BUPIVACAINE 0.5%-EPI 1:200000 PF 10 ML VIAL SUBQ ONE ×2 (17:17)
[2017-03-14] MEDS ORDERED: LACTATED RINGERS 1,000 ML IV ONE (17:19)
[2017-03-14] MEDS ORDERED: MORPHINE PF 5 MG/10 ML AMP SUBQ ONE (17:43)
[2017-03-14] MEDS ORDERED: ROPIVACAINE 0.2% PF 20 ML AMPULE SUBQ ONE (17:43)
[2017-03-14] MEDS ORDERED: EPINEPHrine 1 MG/ML AMP IVP ONE (17:48)
[2017-03-14] MEDS ORDERED: ACETAMINOPHEN 1,000 MG/100 ML 100 ML IV ONE ×2 (18:00→18:32)
[2017-03-14] MEDS ORDERED: METOCLOPRAMIDE 10 MG/2 ML VIAL IVP ONE (18:00)
[2017-03-14] MEDS ORDERED: TRANEXAMIC ACID 1,000 MG/10 ML VIAL IV ONE (18:00)
[2017-03-14] MEDS ORDERED: PROPOFOL 200 MG/20 ML VIAL IVP ONE (18:00)
[2017-03-14] MEDS ORDERED: LIDOCAINE-MPF 2% 5 ML VIAL IM ONE (18:00)
[2017-03-14] MEDS ORDERED: DEXAMETHASONE 4 MG/ML VIAL IVP ONE (18:00)
[2017-03-14] MEDS ORDERED: fentaNYL 100 MCG/2 ML VIAL IVP ONE (18:00)
[2017-03-14] MEDS ORDERED: MORPHINE PF 5 MG/10 ML AMP EP ONE (18:00)
[2017-03-14] MEDS ORDERED: ceFAZolin 1 GM VIAL IV ONE (18:00)
[2017-03-14] MEDS ORDERED: ONDANSETRON 4 MG/2 ML VIAL IVP ONE (18:00)
[2017-03-14] MEDS ORDERED: KETOROLAC 30 MG/ML VIAL IVP ONE (18:00)
--- NOTE | 2017-03-14 18:21 | OPERATIVE REPORT ---
Operative Report - General Admit Date: 03/13/17 Procedure Date: 03/14/17 Planned Procedure: bipolar replacement of left hip Pre-Op Diagnosis: Left femoral neck fracture Procedure Performed: bipolar replacement of left hip - Procedure Note Primary Surgeon: ignacia Anesthesia Provider: Chris Najera Anesthesia Technique: General LMA Estimated Blood Loss (mL): 200
[2017-03-14] MEDS ORDERED: BISACODYL 10 MG SUPP PR PRN (18:28)
[2017-03-14] MEDS ORDERED: SENNA 8.6 MG TABLET PO PRN (18:28)
[2017-03-14] MEDS ORDERED: ACETAMINOPHEN 1,000 MG/100 ML 100 ML IV PRN (18:28)
--- NOTE | 2017-03-14 20:40 | XRAY Preliminary Report ---
Exam: XR Hip w/Pelvis 1V LT IMPRESSION: Satisfactory postoperative radiographic appearance of left hip replacement. [facility] SITE ID: [id number]
--- NOTE | 2017-03-14 20:43 | XRAY Report ---
EXAM: LEFT HIP AND PELVIS RADIOGRAPHY EXAM DATE: 03/14/2017 07:15 PM. HISTORY: Post op. COMPARISONS: None. TECHNIQUE: 1 view of the pelvis and 1 view of the hip. FINDINGS: Bones: Interval left hip arthroplasty. No periprosthesis fracture. Joints: Multiple moderate right hip degenerative changes. Left hip replacement demonstrates satisfact ory alignment. Soft Tissues: Normal. No soft tissue swelling. IMPRESSION: Satisfactory postoperative radiographic appearance of left hip replacement. [facility] Referring Provider Line: [phone] SITE ID: [id number]
[2017-03-14] MEDS: ASPIRIN EC 325 MG TABLET PO SCH (21:23)
[2017-03-14] MEDS: ALLOPURINOL 100 MG TABLET PO SCH (21:24)
[2017-03-14] MEDS: ceFAZolin 2 GM/50 ML 2 GM/50 ML BAG IV SCH (21:39)
[2017-03-15] MEDS: ceFAZolin 2 GM/50 ML 2 GM/50 ML BAG IV SCH (05:54)
[2017-03-15] MEDS: SODIUM CHLORIDE FLUSH 0.9% 10 ML SYRINGE IVP SCH ×3 (05:54→21:18)
[2017-03-15 05:58] LABS: BASOPHILS % (AUTO) 0.2 %; EOSINOPHILS % (AUTO) 0.1 %; HCT - HEMATOCRIT 32.2 % (37.0-47.0); HGB - HEMOGLOBIN 10.7 g/dL (12.0-16.0); LYMPHOCYTES # (AUTO) 0.6 10^3/uL (1.5-3.5); LYMPHOCYTES % (AUTO) 6.5 %; MEAN CORPUSCULAR HGB CONC 33.4 g/dL (32.0-36.0); MEAN PLATELET VOLUME 7.6 fL (7.9-10.8); MONOCYTES # (AUTO) 0.6 10^3/uL (0.0-1.0); MONOCYTES % (AUTO) 5.7 %; NEUTROPHILS # (AUTO) 8.6 10^3/uL (1.5-6.6); NEUTROPHILS % (AUTO) 87.5 %; RED BLOOD COUNT 3.35 10^6/uL (4.20-5.40); RED CELL DISTRIBUTION WIDTH 14.3 % (12.0-15.0); UNCORRECTED WHITE BLOOD COUNT 9.8 x10^3/uL; WHITE BLOOD COUNT 9.8 x10^3/uL (4.8-10.8)
[2017-03-15 06:11] LABS: BILIRUBIN,TOTAL 0.6 mg/dL (0.2-1.0); CALCIUM 7.8 mg/dL (8.5-10.3); POTASSIUM 3.6 mmol/L (3.5-5.0); TOTAL PROTEIN 5.7 g/dL (6.7-8.2)
--- NOTE | 2017-03-15 07:12 | PROVIDER PROGRESS NOTE ---
Subjective - General Admit Date: 03/13/17 Procedure Date: 03/14/17 Post Op Days: 1 Procedure Performed: Left Hip Hemiarthroplasty - Review of Systems Wound/Incisions: positive: Healing well General: positive: No symptoms Musculoskeletal: positive: Joint pain Psychiatric: positive: No symptoms Objective - Patient Data Reviewed Vital Signs: Yes Vital Signs: Vital Signs x48h Temp Pulse Resp BP Pulse Ox 03/15/17 06:00 36.6 C 73 18 154/61 H 97 03/15/17 00:06 36.3 C L 79 16 141/62 H 95 Weight: Weight 03/13/17 03/14/17 03/15/17 23:59 23:59 23:59 Weight (kg) 65 kg Intake & Output: Intake and Output Totals x24h 03/13/17 03/14/17 03/15/17 23:59 23:59 23:59 Intake Total 2645 3428.333 50 Output Total 1200 2325 575 Balance 1445 1103.333 -525 - Lab Results Lab Results: 03/15/17 05:29 03/15/17 05:29 Other Lab Results: Lab Results x24hrs 03/15/17 03/15/17 Range/Units 05:29 05:29 WBC 9.8 (4.8-10.8) x10^3/uL RBC 3.35 L (4.20-5.40) 10^6/uL Hgb 10.7 L (12.0-16.0) g/dL Hct 32.2 L (37.0-47.0) % MCV 96.0 (81.0-99.0) fL MCH 32.0 H (27.0-31.0) pg MCHC 33.4 (32.0-36.0) g/dL RDW 14.3 (12.0-15.0) % Plt Count 208 (130-450) 10^3/uL MPV 7.6 L (7.9-10.8) fL Neut # 8.6 H (1.5-6.6) 10^3/uL Lymph # 0.6 L (1.5-3.5) 10^3/uL [place] # 0.6 (0.0-1.0) 10^3/uL Eos # 0.0 (0.0-0.7) 10^3/uL Baso # 0.0 (0.0-0.1) 10^3/uL Absolute Nucleated RBC 0.00 x10^3/uL Nucleated RBC % 0.0 /100WBC Sodium 134 L (135-145) mmol/L Potassium 3.6 (3.5-5.0) mmol/L Chloride 106 (101-111) mmol/L Carbon Dioxide 20 L (21-32) mmol/L Anion Gap 8.0 (6-13) BUN 18 (6-20) mg/dL Creatinine 1.0 (0.4-1.0) mg/dL Estimated GFR (MDRD) 53 L (>89) Glucose 124 H (70-100) mg/dL Calcium 7.8 L (8.5-10.3) mg/dL Total Bilirubin 0.6 (0.2-1.0) mg/dL AST 40 (10-42) IU/L ALT 33 (10-60) IU/L Alkaline Phosphatase 60 (42-121) IU/L Total Protein 5.7 L (6.7-8.2) g/dL Albumin 2.8 L (3.2-5.5) g/dL Globulin 2.9 (2.1-4.2) g/dL Albumin/Globulin Ratio 1.0 (1.0-2.2) - Imaging Results Radiology Imaging: positive: EMP read indepedently - Current Medications Current Medications: Current Medications Generic Name Dose Route Start Last Admin Trade Name Freq PRN Reason Stop Dose Admin Allopurinol 300 mg 03/13/17 21:00 03/14/17 21:24 Zyloprim PO 300 mg QPM GLENDY Administration Aspirin 325 mg 03/14/17 19:00 03/14/17 21:23 Ecotrin PO 325 mg DAILY GLENDY Administration Budesonide 3 mg 03/14/17 09:00 03/14/17 08:49 Entocort Ec PO Not Given DAILY GLENDY Sodium Chloride 1,000 mls @ 100 mls/hr 03/13/17 09:00 03/14/17 22:49 Normal Saline 0.9% IV 100 mls/hr .Q10H GLENDY Administration Losartan Potassium 50 mg 03/13/17 21:00 03/14/17 22:49 Cozaar PO 50 mg BID GLENDY Administration Metoprolol Succinate 25 mg 03/14/17 09:00 03/14/17 08:49 Toprol Xl PO 25 mg DAILY GLENDY Administration Morphine Sulfate 2 mg 03/13/17 02:14 03/14/17 21:33 Morphine IVP 2 mg Q4H PRN Administration Pain 8 to 10 Ondansetron HCl 4 mg 03/13/17 02:14 03/13/17 03:46 Zofran Inj IVP 4 mg Q6HR PRN Administration Nausea / Vomiting Polyethylene Glycol 17 gm 03/13/17 09:00 03/14/17 07:52 Miralax PO Not Given DAILY GLENDY Sodium Chloride 10 ml 03/13/17 02:14 03/14/17 21:33 Normal Saline Flush 0.9% IVP 10 ml PRN PRN Administration NEEDED PER PROVIDER ORDERS Sodium Chloride 10 ml 03/13/17 06:00 03/15/17 05:54 Normal Saline Flush 0.9% IVP Not Given Q8HR GLENDY - Physical Exam Wound/Incisions: positive: Healing well, Dressing dry and intact General Appearance: positive: No acute distress Skin: positive: Warm, Dry, Cyanosis Extremities: positive: Joint swelling Neurologic/Psychiatric: positive: Motor nml, Sensation nml, Mood/affect nml Impression/Plan - Problem List Problem List: POD #1 Pt is doing well. Wound is dry and clean. PLan to advance with PT and gear up for SNF if needed. Left leg skin is stable and dressed. Discussed further care issues about the hip surgery with the patient.
--- NOTE | 2017-03-15 07:31 | OPERATIVE REPORT ---
DATE OF SURGERY: 03/14/2017 00:00:00 PREOPERATIVE DIAGNOSIS: Left femoral neck fracture. POSTOPERATIVE DIAGNOSIS: Left femoral neck fracture. NAME OF PROCEDURE: Left bipolar hip arthroplasty. SURGEON: Hugh Giordano MD ANESTHESIA: General by Dr. Jovani Bermeo INDICATIONS FOR SURGERY: The patient is an 86-year-old female who suffered a ground-level fall, fract uring her hip and admitted to the hospital with hip pain and unable to ambulate. FINDINGS AT SURGERY: The patient was found to have a comminuted fracture through the mid transcervica l area in an otherwise healthy-appearing hip joint without arthritis. DESCRIPTION OF OPERATIVE PROCEDURE: The patient was taken to operating room, was given a spinal anest hetic followed by light general anesthetic with LMA. She was positioned right lateral decubitus with sufficient padding. Her hip was isolated with plastic drapes and sterilely prepped and draped in gertrude dard fashion. The patient's hip was approached through a posterior incision through skin and subcutan eous tissue, dividing transverse external rotator tendons and then exposing hip capsule, which was in cised. The hip fracture and hematoma were evacuated, the femoral head removed and fragments of bone r emoved from in the acetabulum, careful inspection was made of that acetabulum, and that was intact an d healthy. The femoral neck was re-resected with a saw at an appropriate level and then retractors po sitioned to allow exposure for entry into the femoral canal with reaming and broaching to accommodate a size 11 echo Reyna Press-Fit stem. Once this was accomplished, a trial stem was inserted and tria l reduction was performed. Cut size 45 mm with a standard neck. It did appear to be too tight, so a b ack off to a -3 length was tried as well. In the end, appropriate sizing and stability were achieved with the trial implants of the size 11 femoral stem, 28 mm standard head and a 45 mm bipolar cup. The trial components were removed. The femur was flushed and irrigated, and the hip again checked for an y bone fragments and then the implants were positioned starting with the femoral stem and then assemb ling on back table of the bipolar hip with the 28 mm head which was inserted on the stem and reduced into the cup. Stability remained excellent. Limb lengths equalized and tissue tension normal. The shonda sure was then undertaken after thorough irrigation, closing the hip capsule with FiberWire as well as the fascia tristian tissue with FiberWire then interrupted subcutaneous Vicryl closure and Monocryl clos ure of skin. Sterile dressings were applied. The patient's leg on the left, had minor skin tearing th at occurred as the nurse lifted the leg to do the prep and this patient has a history of recurrent te aring of skin in that area following multiple foot surgeries. This is listed as a minor complication that required Steri-Strip closure of minor skin tears. JOB #: [id number] EXT JOB #:[id number]
--- NOTE | 2017-03-15 08:05 | CONSULTATION NOTE ---
DATE OF CONSULTATION: 03/14/2017 00:00:00 REQUESTING PROVIDER: Magno Henderson MD. REASON FOR CONSULTATION: Left hip fracture. HISTORY OF PRESENT ILLNESS: The patient is an 86-year-old female admitted through the emergency room after she sustained a ground-level fall in her home and fractured her left hip. She had hip pain and inability to ambulate. PRIOR MEDICAL HISTORY, MEDICATIONS, AND REVIEW OF SYSTEMS: Documented in her admit note. PHYSICAL EXAMINATION: Physical exam revealed a frail female who is lying in bed. She only has pain wh en she moves. Her left lower extremity is foreshortened and externally rotated. She is alert and orie nted and has normal clear lung rodrigez, a regular heart rate. The patient's left hip shows deformity a s mentioned. Her skin is frail on the leg with reddened discoloration and some extended ecchymoses. H er skin is very thin. The patient has left foot and toe prior surgical scars. The right lower extremi ty is unremarkable and the skin is significantly less discolored or affected in the right lower extre mity than the left. The upper extremity is unremarkable. X-ray evaluation shows a left displaced femo ral neck fracture. IMPRESSION: This is a closed displaced left femoral neck fracture. RECOMMENDATION: Recommendation is for the patient to undergo bipolar hip arthroplasty scheduled for a s soon as feasible. The patient is noted in her history and in her pre surgery discussion and consent , the process of being a Mandaeism and therefore declines any blood products or transfusions, which is documented. JOB #: [id number] EXT JOB #:[id number]
[2017-03-15] MEDS: SODIUM CHLORIDE 0.9% 1,000 ML IV SCH ×2 (10:07→19:45)
[2017-03-15] MEDS: ACETAMINOPHEN 325 MG TABLET PO PRN ×3 (10:13→21:17)
[2017-03-15] MEDS: POLYETHYLENE GLYCOL 3350 17 GM PACKET PO SCH (10:13)
[2017-03-15] MEDS: ASPIRIN EC 325 MG TABLET PO SCH (10:13)
[2017-03-15] MEDS: BUDESONIDE 3 MG CAPSULE PO SCH (10:15)
[2017-03-15] MEDS: METOPROLOL SUCCINATE 25 MG TABLET PO SCH (10:15)
[2017-03-15] MEDS: LOSARTAN 50 MG TABLET PO SCH ×2 (10:15→21:17)
--- NOTE | 2017-03-15 12:44 | PROVIDER PROGRESS NOTE ---
Subjective - Prog Note Date Prog Note Date: 03/15/17 Prog Note Time: 12:42 - Subjective Pt reports feeling: Improved Subjective: feels good cant tell if she needs to pass gas vs have a BM no sob, pain controlled Current Medications - Current Medications Current Medications: Medications Summary Acetaminophen (Tylenol) 650 - 975 mg PO Q4HR PRN PRN Reason: PAIN Last Admin: 03/15/17 10:13 Dose: 650 mg Acetaminophen Assessment Document 03/15/17 10:13 CN (Rec: 03/15/17 10:14 CN [id number]) Pain or Fever Assessment Pain Scale Used 0-10 Pain Intensity (0-10) 2 Fever No Allopurinol (Zyloprim) 300 mg PO QPM [facility] Last Admin: 03/14/17 21:24 Dose: 300 mg Aspirin (Ecotrin) 325 mg PO DAILY [facility] Last Admin: 03/15/17 10:13 Dose: 325 mg Budesonide (Entocort Ec) 3 mg PO DAILY [facility] Last Admin: 03/15/17 10:15 Dose: Not Given Non-Admin Reason: Patient Refused Sodium Chloride (Normal Saline 0.9%) 1,000 mls @ 100 mls/hr IV .Q10H [facility] Last Admin: 03/15/17 10:07 Dose: 100 mls/hr Medication Titration Document 03/15/17 10:07 CN (Rec: 03/15/17 10:08 CN [id number]) Titration Intake Container Volume 1,000 Elapsed Time 44h 38m Titration Dosing IV Rate 100 Increase/Decrease Started/Running Cumulative Dose Not Applicable Total Intake (Rx) 4,463.333 Volume Adjustment/Waste 0 Losartan Potassium (Cozaar) 50 mg PO BID [facility] Last Admin: 03/15/17 10:15 Dose: 50 mg Metoprolol Succinate (Toprol Xl) 25 mg PO DAILY [facility] Last Admin: 03/15/17 10:15 Dose: 25 mg Morphine Sulfate (Morphine) 2 mg IVP Q4H PRN PRN Reason: Pain 8 to 10 Last Admin: 03/14/17 21:33 Dose: 2 mg Ondansetron HCl (Zofran Inj) 4 mg IVP Q6HR PRN PRN Reason: Nausea / Vomiting Last Admin: 03/13/17 03:46 Dose: 4 mg Re-Assess: General PRN Medication Reasses Document 03/13/17 04:16 HS (Rec: 03/13/17 05:41 HS [id number]) Reassessment Effective/Ineffective Effective Polyethylene Glycol (Miralax) 17 gm PO DAILY [facility] Last Admin: 03/15/17 10:13 Dose: Not Given Non-Admin Reason: Physiologically Contraindicated Bowel - Constipation Care Document 03/15/17 10:13 CN (Rec: 03/15/17 10:13 CN [id number]) Constipation Defined As: Current Step Protocol: PCS.BPI Protocol Protocol A Protocol A Daily Polyethylene glycol ( Miralax) 17 grams daily. Sodium Chloride (Normal Saline Flush 0.9%) 10 ml IVP PRN PRN PRN Reason: NEEDED PER PROVIDER ORDERS Last Admin: 03/14/17 21:33 Dose: 10 ml Sodium Chloride (Normal Saline Flush 0.9%) 10 ml IVP Q8HR [facility] Last Admin: 03/15/17 05:54 Dose: Discontinued Medications Acetaminophen (Tylenol) 650 mg PO ONCE STA Stop: 03/12/17 23:58 Last Admin: 03/13/17 00:04 Dose: 650 mg Budesonide (Entocort Ec) 6 mg PO ONCE [facility] Stop: 03/13/17 23:59 Last Admin: 03/13/17 21:56 Dose: 6 mg Bupivacaine HCl/Epinephrine Bitart (Sensorcaine/Epinephrine 0.5%) 30 ml SUBQ .STK-MED ONE Stop: 03/14/17 17:18 Last Admin: 03/14/17 17:17 Dose: 30 ml Epinephrine HCl () 0.5 mg IVP .STK-MED ONE Stop: 03/14/17 17:49 Last Admin: 03/14/17 17:48 Dose: 0.5 mg Furosemide (Lasix) 20 mg PO BIDDIURETIC [facility] Last Admin: 03/14/17 06:24 Dose: 20 mg Sodium Chloride (Normal Saline 0.9%) 1,000 mls @ 75 mls/hr IV .[id number] [facility] Last Infusion: 03/13/17 09:08 Dose: 0 mls/hr Medication Titration Document 03/13/17 09:08 CN (Rec: 03/13/17 10:05 CN [id number]) Titration Intake Titration Intake 1,000 Cumulative Intake 1,000 Container Volume 0 Elapsed Time 5h 52m Titration Dosing IV Rate 0 Increase/Decrease Infused Cumulative Dose Not Applicable Total Intake (Rx) 1,000 Volume Adjustment/Waste 0 Sodium Chloride (Normal Saline 0.9%) mls @ as directed IV .STK-MED ONE Stop: 03/14/17 14:32 Last Admin: 03/14/17 14:31 Dose: 500 mls Lactated Ringer's (Lr) mls @ as directed IV .STK-MED ONE Stop: 03/14/17 17:20 Last Admin: 03/14/17 17:19 Dose: 800 mls Cefazolin Sodium/Dextrose (Ancef 2 Gm/50 Ml) 2 gm in 50 mls @ 100 mls/hr IV Q8H [facility] Stop: 03/15/17 06:29 Last Infusion: 03/15/17 06:38 Dose: 0 mls/hr Medication Titration Document 03/15/17 06:38 KB (Rec: 03/15/17 06:38 KB [id number]) Titration Intake Titration Intake 50 Cumulative Intake 50 Container Volume 0 Elapsed Time 1h 25m Titration Dosing IV Rate 0 Increase/Decrease Infused Cumulative Dose 0 Total Intake (Rx) 100 Volume Adjustment/Waste 0 Ketorolac Tromethamine (Toradol Inj) 30 mg IVP Q6HR PRN PRN Reason: PAIN Stop: 03/14/17 04:05 Last Admin: 03/14/17 00:30 Dose: 30 mg Pain Assessment Document 03/14/17 00:30 KB (Rec: 03/14/17 00:30 KB [id number]) Pain Level Pain Scale Used 0-10 Intensity (0-10) 2 Re-Assess: Pain Reassessment Document 03/14/17 01:00 KB (Rec: 03/14/17 01:38 KB [id number]) Reassessment Effective/Ineffective Effective Unable to Assess Asleep Ketorolac Tromethamine (Toradol Inj) 15 mg IVP ONCE ONE Stop: 03/14/17 06:46 Last Admin: 03/14/17 06:47 Dose: 15 mg Pain Assessment Document 03/14/17 06:47 KB (Rec: 03/14/17 06:47 KB [id number]) Pain Level Pain Scale Used 0-10 Intensity (0-10) 3 Ketorolac Tromethamine (Toradol Inj) 15 mg IVP .STK-MED ONE Stop: 03/14/17 17:45 Last Admin: 03/14/17 17:44 Dose: 15 mg Morphine Sulfate (Morphine) 2 mg IVP ONCE STA Stop: 03/13/17 01:49 Last Admin: 03/13/17 02:15 Dose: 2 mg Morphine Sulfate (Duramorph) 5 mg SUBQ .STK-MED ONE Stop: 03/14/17 17:44 Last Admin: 03/14/17 17:43 Dose: 5 mg Pantoprazole Sodium (Protonix) 40 mg IVP QDAC [facility] Last Admin: 03/14/17 06:22 Dose: 40 mg Ropivacaine (Naropin) 20 mg SUBQ .STK-MED ONE Stop: 03/14/17 17:44 Last Admin: 03/14/17 17:43 Dose: 20 mg Objective - Vital Signs/Intake & Output Reviewed Vital Signs: Yes Vital Signs: Vital Signs x48h Temp Pulse Resp BP Pulse Ox 03/15/17 10:00 37.1 C 71 17 152/67 H 96 03/15/17 06:00 36.6 C 73 18 154/61 H 97 Intake & Output: Intake & Output 03/12/17 03/13/17 03/14/17 03/15/17 23:59 23:59 23:59 23:59 Intake Total 2645 3428.333 1250 Output Total 1200 2325 975 Balance 1445 1103.333 275 - Objective General Appearance: positive: No acute distress, Other (initially sitting up in bed eating full breakfast, later seen up in chair, awake,,alert, animated) Respiratory: positive: No respiratory distress, Breath sounds nml. negative: Rales Cardiovascular: positive: Regular rate & rhythm, No murmur Abdomen: positive: Nml bowel sounds, No distention, Other (soft). negative: Tenderness Skin: positive: Warm, Dry, Other (dressing dry and intact over left hip incision site abrasian L madera (occured evidently with a transfer/ thin skin, and multiple ecchymotic areas from IV attempt R foreamr) Extremities: positive: No pedal edema, Other Neurologic/Psychiatric: positive: Oriented x3 - Lab Results Fish Bones: 03/15/17 05:29 03/15/17 05:29 Other Labs: Lab Results x24hrs 10/04/17 10/04/17 Range/Units 05:29 05:29 WBC 9.8 (4.8-10.8) x10^3/uL RBC 3.35 L (4.20-5.40) 10^6/uL Hgb 10.7 L (12.0-16.0) g/dL Hct 32.2 L (37.0-47.0) % MCV 96.0 (81.0-99.0) fL MCH 32.0 H (27.0-31.0) pg MCHC 33.4 (32.0-36.0) g/dL RDW 14.3 (12.0-15.0) % Plt Count 208 (130-450) 10^3/uL MPV 7.6 L (7.9-10.8) fL Neut # 8.6 H (1.5-6.6) 10^3/uL Lymph # 0.6 L (1.5-3.5) 10^3/uL [place] # 0.6 (0.0-1.0) 10^3/uL Eos # 0.0 (0.0-0.7) 10^3/uL Baso # 0.0 (0.0-0.1) 10^3/uL Absolute Nucleated RBC 0.00 x10^3/uL Nucleated RBC % 0.0 /100WBC Sodium 134 L (135-145) mmol/L Potassium 3.6 (3.5-5.0) mmol/L Chloride 106 (101-111) mmol/L Carbon Dioxide 20 L (21-32) mmol/L Anion Gap 8.0 (6-13) BUN 18 (6-20) mg/dL Creatinine 1.0 (0.4-1.0) mg/dL Estimated GFR (MDRD) 53 L (>89) Glucose 124 H (70-100) mg/dL Calcium 7.8 L (8.5-10.3) mg/dL Total Bilirubin 0.6 (0.2-1.0) mg/dL AST 40 (10-42) IU/L ALT 33 (10-60) IU/L Alkaline Phosphatase 60 (42-121) IU/L Total Protein 5.7 L (6.7-8.2) g/dL Albumin 2.8 L (3.2-5.5) g/dL Globulin 2.9 (2.1-4.2) g/dL Albumin/Globulin Ratio 1.0 (1.0-2.2) Assessment/Plan - Problem List (1) Left displaced femoral neck fracture Impression: Post op Day 1; doing well, up in chair On Full dose ASA per Dr Giordano for VTE proph no oxygen requirement, no significant anemia after 200 EBL, looks great awaiting PT eval ? SNF Mildly prerenal preop (after toradol and lasix is resolving 20/0.8 admit>> 22 /1.1 >> 18/1.0 today) Dr Thacker note today; POD #1 Pt is doing well. Wound is dry and clean. PLan to advance with PT and gear up for SNF if needed. Left leg skin is stable and dressed. Discussed further care issues about the hip surgery with the patient. 2 Hypertension Impression: stable continues home beta candace and will resumed home ARB yesterday post op (150's SBP.) is on 50 bid losartan at home and looks like she will tolerate her home full dose stopped prn hydralazine 03/14 no indication to acutely treat SBP > 150 w/o EOD and evidence is risk of hydralazine acutely dropping pressure outweighs benefit of acutely lowering asymptomatic bp 3) [place] acidosis; unclear source, no diarrhea, was not NPO for prolonged period , not significantly volume down on presentation, no hyperal will recheck in am (3) Gout Impression: stable, resume home meds allopurinal post op 5) hx of some mild form of IBD; continue enterocort
--- NOTE | 2017-03-15 12:58 | DISCHARGE SUMMARY ---
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 Discharge Diagnoses with Status of Each Condition: 1.) Left femoral neck fracture s/p Left bipolar hip arthroplasty on 03/14/2017 2.) Post operative hip pain/ stable well controlled on oxycodone prn and scheduled tylenol 3) Nongap acidosis (due to microscopic colitis) chronic/Stable 4) Left madera skin tear stable - CONSULTS | PROCEDURES Consultations: Orthopedic Surgery Ihsan Giordano Procedures: Bipolar replacement Left hip 03/14/2017 03/12/17 hip/pelvis single view; 1) osteopenia w/ subcapital L hip fracture 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 She fell and sustained a left femoral neck fracture. She was evaluated by Dr Ihsan Giordano of orthopedic surgery and had an uneventful bipolar replacement of the Left hip on 03/14/2017. She had an EBL of 200 cc . She had an uneventful postoperative course, was relatively quick to mobilize. She was evaluated by physical therapy and although intially it was though she might do well enough to be discharged home with the assistance of her , PT recommended [facility] facility for rehab, and Caroline is being discharged to [facility] on Day 3 post op on 03/17. The only "complication" was a skin tear on her left madera . She has very thin friable skin and when a surgical staff member was lifting her leg, the fragile skin tore. She has a tegaderm over this. Patient is to follow up in ortho clinic in [address] Giordano will address both the left hip and left madera dressings then. (leave intact until then) VTE prophylaxis post op per Dr. Giordano 325 mg ASA x 1 month (Ecotrin) She is a Jehovahs witness and required no blood transfusion (would have declined ), There was no significant post operative anemia. Preop Hgb/Hct 12.6/36.7 Post op 10.6/31.3 2) Hypertension; At home Ms Smith is on metoprolol and Losartan. The betablocker was continued thru out the perioperative period, and she already was able to resume the ARB on the evening of surgery. (ie. no post op hypotension) 3) Gout: she continues on her home Allopurinol; no gout flare during hospitalization 4) nongap acidosis; Likely related to her microscopic colitis (for which she is on enterocort). No significant diarrhea. her bicarb was consistently ~ 20-21 - ALLERGIES Allergies/Adverse Reactions: Allergies Allergy/AdvReac Type Severity Reaction Status Date / Time ciprofloxacin [From Cipro] Allergy Unknown Verified 03/12/17 23:54 ciprofloxacin HCl * Allergy Unknown Verified 03/12/17 23:54 [From Cipro] hydrocodone bitartrate * Allergy Unknown Verified 03/12/17 23:54 [From Vicodin] metronidazole [From Flagyl] Allergy Unknown Verified 03/12/17 23:54 bio Allergy Unknown Uncoded 03/13/17 04:23 - MEDICATIONS Home Medications: Ambulatory Orders Medication Instructions Recorded Confirmed Allopurinol 300 mg PO QPM 10/14/16 03/13/17 Losartan [Cozaar] 50 mg PO BID 10/14/16 03/13/17 Metoprolol Succinate 25 mg PO DAILY 10/14/16 03/13/17 Budesonide [Budesonide EC] 3 mg PO DAILY 03/13/17 03/13/17 Furosemide 20 mg PO BID 03/13/17 03/13/17 Home Medications Other | Comments: Discharge meds in addition to above home meds - Tylenol 650 mg po q 6 hr scheduled x 3 ore days, then 650 mg po q 4 hr prn pain -oxycodone 5 mg po q 4 hr prn pain Ecotrin 325 g po daily x 1 month - PHYSICAL EXAM AT DISCHARGE General Appearance: positive: No acute distress, Other ( at bedside, alert, appropriate, animated afeb 36.6, HR 65 144/63 18 RR 96% RA) Eyes Bilateral: positive: Normal inspection Respiratory: positive: No respiratory distress, Breath sounds nml, Other (alert , oriented, animated, in afeb 36.6 HR 65 144/63 96% RA 18 RR). negative: Rales Cardiovascular: positive: Regular rate & rhythm, Systolic murmur (1-2/6 systolic murmur left sternal border, Patient states Dr. Zeng has noted this previously) Abdomen: positive: Nml bowel sounds, No distention. negative: Tenderness Skin: positive: Warm, Dry, Other (skin tear on her left madera with tegaderm dressing (with pad) intact) Extremities: negative: Other Neurologic/Psychiatric: positive: Oriented x3, Mood/affect nml - LABS Result Diagrams: 03/16/17 05:51 03/16/17 05:51 - FOLLOW UP Follow Up: Follow up with Dr. Ihsan Giordano in ortho clinic 1 week [phone] Dr Giordano will change hip dressing (and left madera dressing then)
[2017-03-15] MEDS: ALLOPURINOL 100 MG TABLET PO SCH (21:17)
[2017-03-16] MEDS: MORPHINE 2 MG/ML SYRINGE IVP PRN (04:38)
[2017-03-16] MEDS: ACETAMINOPHEN 325 MG TABLET PO PRN (04:38)
[2017-03-16] MEDS: SODIUM CHLORIDE FLUSH 0.9% 10 ML SYRINGE IVP PRN (04:39)
[2017-03-16] MEDS: BUDESONIDE 3 MG CAPSULE PO SCH (05:58)
[2017-03-16] MEDS: SODIUM CHLORIDE FLUSH 0.9% 10 ML SYRINGE IVP SCH ×3 (05:59→19:15)
[2017-03-16 06:01] LABS: BASOPHILS # (AUTO) 0.1 10^3/uL (0.0-0.1); BASOPHILS % (AUTO) 0.6 %; EOSINOPHILS # (AUTO) 0.4 10^3/uL (0.0-0.7); EOSINOPHILS % (AUTO) 4.8 %; HCT - HEMATOCRIT 31.3 % (37.0-47.0); HGB - HEMOGLOBIN 10.6 g/dL (12.0-16.0); LYMPHOCYTES # (AUTO) 1.2 10^3/uL (1.5-3.5); MEAN CORPUSCULAR HEMOGLOBIN 32.4 pg (27.0-31.0); MEAN CORPUSCULAR HGB CONC 33.9 g/dL (32.0-36.0); MEAN CORPUSCULAR VOLUME 95.6 fL (81.0-99.0); MEAN PLATELET VOLUME 7.7 fL (7.9-10.8); MONOCYTES # (AUTO) 0.7 10^3/uL (0.0-1.0); MONOCYTES % (AUTO) 9.1 %; NEUTROPHILS # (AUTO) 5.6 10^3/uL (1.5-6.6); NEUTROPHILS % (AUTO) 70.5 %; RED BLOOD COUNT 3.27 10^6/uL (4.20-5.40); RED CELL DISTRIBUTION WIDTH 14.2 % (12.0-15.0)
[2017-03-16 06:18] LABS: BILIRUBIN,TOTAL 0.5 mg/dL (0.2-1.0); CREATININE 0.8 mg/dL (0.4-1.0); POTASSIUM 3.2 mmol/L (3.5-5.0); TOTAL PROTEIN 5.6 g/dL (6.7-8.2)
[2017-03-16] MEDS ORDERED: POTASSIUM CHLORIDE 20 MEQ TABLET PO ONE (07:20)
--- NOTE | 2017-03-16 07:20 | PROVIDER PROGRESS NOTE ---
Subjective - General Admit Date: 03/13/17 Procedure Date: 03/14/17 Post Op Days: 2 Procedure Performed: Left Hip Hemiarthroplasty - Review of Systems Wound/Incisions: positive: Healing well, Dressing dry and intact General: positive: No symptoms Musculoskeletal: positive: Joint pain Psychiatric: positive: No symptoms Objective - Patient Data Reviewed Vital Signs: Yes Vital Signs: Vital Signs x48h Temp Pulse Resp BP BP Pulse Ox 03/16/17 05:56 37.1 C 78 16 147/61 H 97 03/16/17 00:20 82 162/67 H 03/16/17 00:00 36.5 C 95 16 176/71 H 97 Intake & Output: Intake and Output Totals x24h 03/14/17 03/15/17 03/16/17 23:59 23:59 23:59 Intake Total 3428.333 3880 Output Total 2325 1375 Balance 8616.868 8723 - Lab Results Lab Results: 03/16/17 05:51 03/16/17 05:51 Other Lab Results: Lab Results x24hrs 03/16/17 03/16/17 Range/Units 05:51 05:51 WBC 8.0 (4.8-10.8) x10^3/uL RBC 3.27 L (4.20-5.40) 10^6/uL Hgb 10.6 L (12.0-16.0) g/dL Hct 31.3 L (37.0-47.0) % MCV 95.6 (81.0-99.0) fL MCH 32.4 H (27.0-31.0) pg MCHC 33.9 (32.0-36.0) g/dL RDW 14.2 (12.0-15.0) % Plt Count 213 (130-450) 10^3/uL MPV 7.7 L (7.9-10.8) fL Neut # 5.6 (1.5-6.6) 10^3/uL Lymph # 1.2 L (1.5-3.5) 10^3/uL [place] # 0.7 (0.0-1.0) 10^3/uL Eos # 0.4 (0.0-0.7) 10^3/uL Baso # 0.1 (0.0-0.1) 10^3/uL Absolute Nucleated RBC 0.00 x10^3/uL Nucleated RBC % 0.0 /100WBC Sodium 140 (135-145) mmol/L Potassium 3.2 L (3.5-5.0) mmol/L Chloride 113 H (101-111) mmol/L Carbon Dioxide 21 (21-32) mmol/L Anion Gap 6.0 (6-13) BUN 15 (6-20) mg/dL Creatinine 0.8 (0.4-1.0) mg/dL Estimated GFR (MDRD) 68 L (>89) Glucose 102 H (70-100) mg/dL Calcium 8.0 L (8.5-10.3) mg/dL Total Bilirubin 0.5 (0.2-1.0) mg/dL AST 42 (10-42) IU/L ALT 14 (10-60) IU/L Alkaline Phosphatase 55 (42-121) IU/L Total Protein 5.6 L (6.7-8.2) g/dL Albumin 2.8 L (3.2-5.5) g/dL Globulin 2.8 (2.1-4.2) g/dL Albumin/Globulin Ratio 1.0 (1.0-2.2) - Current Medications Current Medications: Current Medications Generic Name Dose Route Start Last Admin Trade Name Freq PRN Reason Stop Dose Admin Acetaminophen 650 - 975 mg 03/14/17 18:28 03/16/17 04:38 Tylenol PO 650 mg Q4HR PRN Administration PAIN Allopurinol 300 mg 03/13/17 21:00 03/15/17 21:17 Zyloprim PO 300 mg QPM GLENDY Administration Aspirin 325 mg 03/14/17 19:00 03/15/17 10:13 Ecotrin PO 325 mg DAILY GLENDY Administration Budesonide 3 mg 03/16/17 06:30 03/16/17 05:58 Entocort Ec PO 3 mg DAILY@0630 GLENDY Administration Losartan Potassium 50 mg 03/13/17 21:00 03/15/17 21:17 Cozaar PO 50 mg BID GLENDY Administration Metoprolol Succinate 25 mg 03/14/17 09:00 03/15/17 10:15 Toprol Xl PO 25 mg DAILY GLENDY Administration Morphine Sulfate 2 mg 03/13/17 02:14 03/16/17 04:38 Morphine IVP 2 mg Q4H PRN Administration Pain 8 to 10 Ondansetron HCl 4 mg 03/13/17 02:14 03/13/17 03:46 Zofran Inj IVP 4 mg Q6HR PRN Administration Nausea / Vomiting Polyethylene Glycol 17 gm 03/13/17 09:00 03/15/17 10:13 Miralax PO Not Given DAILY GLENDY Sodium Chloride 10 ml 03/13/17 02:14 03/16/17 04:39 Normal Saline Flush 0.9% IVP 10 ml PRN PRN Administration NEEDED PER PROVIDER ORDERS Sodium Chloride 10 ml 03/13/17 06:00 03/16/17 05:59 Normal Saline Flush 0.9% IVP 10 ml Q8HR GLENDY Administration
[2017-03-16] MEDS: POLYETHYLENE GLYCOL 3350 17 GM PACKET PO SCH (07:38)
[2017-03-16] MEDS: ACETAMINOPHEN 325 MG TABLET PO SCH ×3 (08:47→19:09)
[2017-03-16] MEDS: METOPROLOL SUCCINATE 25 MG TABLET PO SCH (08:47)
[2017-03-16] MEDS: ASPIRIN EC 325 MG TABLET PO SCH (08:48)
[2017-03-16] MEDS: LOSARTAN 50 MG TABLET PO SCH ×2 (08:48→19:06)
--- NOTE | 2017-03-16 11:25 | PROVIDER PROGRESS NOTE ---
Subjective - Prog Note Date Prog Note Date: 03/16/17 Prog Note Time: 11:23 - Subjective Pt reports feeling: Improved (had a bit of a rough nite initially because she had to get up to move her bowels a few times, feels better now) Subjective: says her "allergy" to vicodin was "loopy in the head" Current Medications - Current Medications Current Medications: Active Medications Generic Name Dose Route Start Last Admin Trade Name Freq PRN Reason Stop Dose Admin Acetaminophen 650 mg 03/16/17 08:00 03/16/17 08:47 Tylenol PO 650 mg Q6H GLENDY Administration Allopurinol 300 mg 03/13/17 21:00 03/15/17 21:17 Zyloprim PO 300 mg QPM GLENDY Administration Aspirin 325 mg 03/14/17 19:00 03/16/17 08:48 Ecotrin PO 325 mg DAILY GLENDY Administration Budesonide 3 mg 03/16/17 06:30 03/16/17 05:58 Entocort Ec PO 3 mg DAILY@0630 GLENDY Administration Acetaminophen 100 mls @ 400 mls/hr 03/14/17 18:28 Ofirmev IV Q6HR PRN PAIN Losartan Potassium 50 mg 03/13/17 21:00 03/16/17 08:48 Cozaar PO 50 mg BID GLENDY Administration Metoprolol Succinate 25 mg 03/14/17 09:00 03/16/17 08:47 Toprol Xl PO 25 mg DAILY GLENDY Administration Morphine Sulfate 2 mg 03/13/17 02:14 03/16/17 04:38 Morphine IVP 2 mg Q4H PRN Administration Pain 8 to 10 Ondansetron HCl 4 mg 03/13/17 02:14 03/13/17 03:46 Zofran Inj IVP 4 mg Q6HR PRN Administration Nausea / Vomiting Oxycodone HCl 5 mg 03/16/17 07:59 Roxicodone PO Q4HR PRN PAIN Polyethylene Glycol 17 gm 03/13/17 09:00 03/16/17 07:38 Miralax PO Not Given DAILY GLENDY Sodium Chloride 10 ml 03/13/17 02:14 03/16/17 04:39 Normal Saline Flush 0.9% IVP 10 ml PRN PRN Administration NEEDED PER PROVIDER ORDERS Sodium Chloride 10 ml 03/13/17 06:00 03/16/17 05:59 Normal Saline Flush 0.9% IVP 10 ml Q8HR GLENDY Administration Allopurinol 300 mg PO QPM 10/14/16 Losartan [Cozaar] 50 mg PO BID 10/14/16 Metoprolol Succinate 25 mg PO DAILY 10/14/16 Budesonide [Budesonide EC] 3 mg PO DAILY 03/13/17 Furosemide 20 mg PO BID 03/13/17 Objective - Vital Signs/Intake & Output Reviewed Vital Signs: Yes Vital Signs: Vital Signs x48h Temp Pulse Resp BP Pulse Ox 03/16/17 08:16 37.0 C 78 17 155/72 H 98 03/16/17 05:56 37.1 C 78 16 147/61 H 97 Intake & Output: Intake & Output 03/13/17 03/14/17 03/15/17 03/16/17 23:59 23:59 23:59 23:59 Intake Total 2645 3428.333 3880 100 Output Total 1200 2325 1375 300 Balance 1445 7770.532 2541 -200 - Objective General Appearance: positive: No acute distress, Other (sitting up in bed, wearing scarf, animated, alert) Eyes Bilateral: positive: Normal inspection Respiratory: positive: Chest non-tender, No respiratory distress, Breath sounds nml Abdomen: positive: Nml bowel sounds, No distention. negative: Tenderness Skin: positive: Warm, Dry, Other (dressing dry intact over left hip and left anterior madera (skin tear when leg was lifted) R forearm ecchymosis stable) Extremities: positive: Other (trace to + 1 edema on left, skin tear with tegaderm dressing intact over Left madera) Neurologic/Psychiatric: positive: Oriented x3 - Lab Results Fish Bones: 03/16/17 05:51 03/16/17 05:51 Other Labs: Lab Results x24hrs 03/16/17 03/16/17 Range/Units 05:51 05:51 WBC 8.0 (4.8-10.8) x10^3/uL RBC 3.27 L (4.20-5.40) 10^6/uL Hgb 10.6 L (12.0-16.0) g/dL Hct 31.3 L (37.0-47.0) % MCV 95.6 (81.0-99.0) fL MCH 32.4 H (27.0-31.0) pg MCHC 33.9 (32.0-36.0) g/dL RDW 14.2 (12.0-15.0) % Plt Count 213 (130-450) 10^3/uL MPV 7.7 L (7.9-10.8) fL Neut # 5.6 (1.5-6.6) 10^3/uL Lymph # 1.2 L (1.5-3.5) 10^3/uL [place] # 0.7 (0.0-1.0) 10^3/uL Eos # 0.4 (0.0-0.7) 10^3/uL Baso # 0.1 (0.0-0.1) 10^3/uL Absolute Nucleated RBC 0.00 x10^3/uL Nucleated RBC % 0.0 /100WBC Sodium 140 (135-145) mmol/L Potassium 3.2 L (3.5-5.0) mmol/L Chloride 113 H (101-111) mmol/L Carbon Dioxide 21 (21-32) mmol/L Anion Gap 6.0 (6-13) BUN 15 (6-20) mg/dL Creatinine 0.8 (0.4-1.0) mg/dL Estimated GFR (MDRD) 68 L (>89) Glucose 102 H (70-100) mg/dL Calcium 8.0 L (8.5-10.3) mg/dL Total Bilirubin 0.5 (0.2-1.0) mg/dL AST 42 (10-42) IU/L ALT 14 (10-60) IU/L Alkaline Phosphatase 55 (42-121) IU/L Total Protein 5.6 L (6.7-8.2) g/dL Albumin 2.8 L (3.2-5.5) g/dL Globulin 2.8 (2.1-4.2) g/dL Albumin/Globulin Ratio 1.0 (1.0-2.2) Assessment/Plan - Problem List (1) Left displaced femoral neck fracture Impression: Left displaced femoral neck fracture Impression: Post op Day 2; continues to do well Per Ambika of Physical Therapy, SNF recommended (yesterday , it was looking like she may do well enough to go home with ) >>Likely d/c tomorrow Day 3 (final dispo approval when ok per surgeon) On Full dose ASA per Dr Giordano for VTE proph no oxygen requirement, no significant anemia Hgb 12.6> 12.0> 10.7> 10.6 after 200 EBL, Will stop BMP's/CBC to avoid iatrogenic phlebotomy anemia (Jehovahs witness) Mildly prerenal preop (after toradol and lasix is resolving 20/0.8 admit>> 22 /1.1 >> 18/1.0 >> 15/0.8 today) Stop BMP's 2 Hypertension Impression: stable 155/72 this am on her home meds of losartan and beta candace stopped prn hydralazine 03/14 no indication to acutely treat SBP > 150 w/o EOD and evidence is risk of hydralazine acutely dropping pressure outweighs benefit of acutely lowering asymptomatic bp 3) Nongap acidosis; unclear source, no diarrhea (but does have microscopic colitis, was not NPO for prolonged period , not significantly volume down on presentation, no hyperal will recheck in am slightly improved, will stop checking BMP's to avoid iatrogenic (3) Gout Impression: stable, resume home meds allopurinal post op 5) Microscopic colitis; Stable continue enterocort
[2017-03-16] MEDS: oxyCODONE 5 MG TABLET PO PRN (19:03)
[2017-03-16] MEDS: ALLOPURINOL 100 MG TABLET PO SCH (19:07)
[2017-03-17] MEDS: oxyCODONE 5 MG TABLET PO PRN ×3 (00:03→10:22)
[2017-03-17] MEDS: ACETAMINOPHEN 325 MG TABLET PO SCH ×2 (02:06→08:38)
[2017-03-17] MEDS: BUDESONIDE 3 MG CAPSULE PO SCH (06:17)
[2017-03-17] MEDS: SODIUM CHLORIDE FLUSH 0.9% 10 ML SYRINGE IVP SCH (06:18)
[2017-03-17 07:55] VITALS: BP 144/63
[2017-03-17] MEDS: LOSARTAN 50 MG TABLET PO SCH (08:38)
[2017-03-17] MEDS: POLYETHYLENE GLYCOL 3350 17 GM PACKET PO SCH (08:38)
[2017-03-17] MEDS: METOPROLOL SUCCINATE 25 MG TABLET PO SCH (08:38)
[2017-03-17] MEDS: ASPIRIN EC 325 MG TABLET PO SCH (08:38)
--- NOTE | 2017-03-17 10:22 | PROVIDER PROGRESS NOTE ---
Subjective - General Admit Date: 03/13/17 Procedure Date: 03/14/17 Post Op Days: 3 Procedure Performed: Left Hip Hemiarthroplasty - Review of Systems Wound/Incisions: positive: Healing well, Dressing dry and intact General: positive: Fatigue Musculoskeletal: positive: Joint pain Psychiatric: positive: No symptoms Objective - Patient Data Reviewed Vital Signs: Yes Vital Signs: Vital Signs x48h Temp Pulse Resp BP Pulse Ox 03/17/17 07:55 36.6 C 65 18 144/63 H 96 03/17/17 06:24 36.5 C 71 16 148/70 H 98 Intake & Output: Intake and Output Totals x24h 03/15/17 03/16/17 03/17/17 23:59 23:59 23:59 Intake Total 3880 670 360 Output Total 1375 650 Balance 2505 20 360 - Lab Results Lab Results: 03/16/17 05:51 03/16/17 05:51 - Current Medications Current Medications: Current Medications Generic Name Dose Route Start Last Admin Trade Name Freq PRN Reason Stop Dose Admin Acetaminophen 650 mg 03/16/17 08:00 03/17/17 08:38 Tylenol PO 650 mg Q6H GLENDY Administration Allopurinol 300 mg 03/13/17 21:00 03/16/17 19:07 Zyloprim PO 300 mg QPM GLENDY Administration Aspirin 325 mg 03/14/17 19:00 03/17/17 08:38 Ecotrin PO 325 mg DAILY GLENDY Administration Budesonide 3 mg 03/16/17 06:30 03/17/17 06:17 Entocort Ec PO 3 mg DAILY@0630 GLENDY Administration Losartan Potassium 50 mg 03/13/17 21:00 03/17/17 08:38 Cozaar PO 50 mg BID GLENDY Administration Metoprolol Succinate 25 mg 03/14/17 09:00 03/17/17 08:38 Toprol Xl PO 25 mg DAILY GLENDY Administration Ondansetron HCl 4 mg 03/13/17 02:14 03/13/17 03:46 Zofran Inj IVP 4 mg Q6HR PRN Administration Nausea / Vomiting Oxycodone HCl 5 mg 03/16/17 07:59 03/17/17 06:17 Roxicodone PO 5 mg Q4HR PRN Administration PAIN Polyethylene Glycol 17 gm 03/13/17 09:00 03/17/17 08:38 Miralax PO Not Given DAILY GLENDY Sodium Chloride 10 ml 03/13/17 02:14 03/16/17 04:39 Normal Saline Flush 0.9% IVP 10 ml PRN PRN Administration NEEDED PER PROVIDER ORDERS Sodium Chloride 10 ml 03/13/17 06:00 03/17/17 06:18 Normal Saline Flush 0.9% IVP 10 ml Q8HR GLENDY Administration - Physical Exam Wound/Incisions: positive: Dressing dry and intact General Appearance: positive: No acute distress Extremities: positive: Joint swelling Neurologic/Psychiatric: positive: Motor nml, Sensation nml, Mood/affect nml Impression/Plan - Problem List Problem List: POD #3 Pt progressing well. Rec. SNF Dressings to remain intact until next wk office visit.
== END 2017-03-17 12:45 | DRG 470 ==
LOC: EDUNIT# → ED 23:45 → SUPCPDRO 23:45 → MS3 03-13 02:14
PROVIDERS: ATTEND Nurse Practitioner
PROC: 0SRS019 Replacement of Left Hip Joint, Femoral Surface with Metal Synthetic Substitute, Cemented, Open Approach (ICD-10-PCS; principal; 2017-03-14 10:30)
DX: S72.012A Unspecified intracapsular fracture of left femur, initial encounter for closed fracture (principal); E87.2 Acidosis; K52.839 Microscopic colitis, unspecified; M10.9 Gout, unspecified; I10 Essential (primary) hypertension; W01.0XXA Fall on same level from slipping, tripping and stumbling without subsequent striking against object, initial encounter; M85.88 Other specified disorders of bone density and structure, other site; M16.12 Unilateral primary osteoarthritis, left hip; Y93.89 Activity, other specified; Y92.009 Unspecified place in unspecified non-institutional (private) residence as the place of occurrence of the external cause; S80.812A Abrasion, left lower leg, initial encounter; X58.XXXA Exposure to other specified factors, initial encounter; Y92.234 Operating room of hospital as the place of occurrence of the external cause; Z79.899 Other long term (current) drug therapy
CPT/HCPCS: 36415; 71010; 80053; 83690; 83735; 85025; 85610; 85730; 93005; 96374; 99283; 99285

== ENCOUNTER 2017-08-15 10:59 | Emergency (ER) | payer MEDICARE, OTHER ==
--- NOTE | 2017-08-15 13:00 | ED Physician Documentation ---
PD HPI ABD PAIN - Stated complaint Stated Complaint: ABD PX/VOMITING - Chief complaint Chief Complaint: Abd Pain - History obtained from History obtained from: Patient - History of Present Illness Timing - onset: How many days ago (several days of lower abd pain c/w prior episodes of diverticulitis. Treated outpt by PMD with doxycycline orally but was causing her upset stomach and vomiting. Changed to Bactrim yesterday but this was also causing nausea and vomiting. Pain persists. here today for evaluation and feeling dehdrated.) Timing - duration: Days Timing - details: Gradual onset, Still present Quality: Cramping, Aching, Pain Location: RLQ, Suprapubic Radiation: No: Lower back, Left flank, Right flank Improved by: No: Eating, Vomiting, BM Worsened by: Eating Associated symptoms: Nausea, Vomiting. No: Fever, Diarrhea, Constipation, Dysuria Similar symptoms before: Diagnosis (diverticulitis couple times in the past) Recently seen: Clinic Review of Systems Constitutional: denies: Fever, Chills Nose: denies: Rhinorrhea / runny nose, Congestion Throat: denies: Sore throat Cardiac: denies: Chest pain / pressure Respiratory: denies: Cough GI: reports: Abdominal Pain, Nausea, Vomiting. denies: Constipation, Diarrhea, Bloody / black stool : denies: Dysuria, Frequency Skin: denies: Rash Neurologic: reports: Generalized weakness. denies: Focal weakness, Numbness, Near syncope, Altered mental status PD PAST MEDICAL HISTORY - Past Medical History Past Medical History: Yes Cardiovascular: Hypertension, High cholesterol GI: C.difficile, Diverticulitis, Ulcerative colitis Musculoskeletal: Gout Derm: Other - Past Surgical History Past Surgical History: Yes General: Cholecystectomy /PERSONAL CHEF: Hysterectomy - Present Medications Home Medications: Ambulatory Orders Medication Instructions Recorded Confirmed Allopurinol 300 mg PO QPM 10/14/16 03/13/17 Losartan [Cozaar] 50 mg PO BID 10/14/16 03/13/17 Metoprolol Succinate 25 mg PO DAILY 10/14/16 03/13/17 Budesonide [Budesonide EC] 3 mg PO DAILY 03/13/17 03/13/17 Furosemide 20 mg PO BID 03/13/17 03/13/17 Amox/Clav 875/125 [Augmentin] 1 each PO BID #10 tablet 08/15/17 Famotidine [Pepcid] 20 mg PO ONCE #15 tablet 08/15/17 Ondansetron Odt [Zofran] 4 mg TL Q6H PRN #15 tablet 08/15/17 - Allergies Allergies/Adverse Reactions: Allergies Allergy/AdvReac Type Severity Reaction Status Date / Time ciprofloxacin [From Cipro] Allergy Unknown Verified 08/15/17 11:09 ciprofloxacin HCl * Allergy Unknown Verified 08/15/17 11:09 [From Cipro] hydrocodone bitartrate * Allergy Unknown Verified 08/15/17 11:09 [From Vicodin] metronidazole [From Flagyl] Allergy Unknown Verified 08/15/17 11:09 bio Allergy Unknown Uncoded 08/15/17 11:09 - Social History Does the pt smoke?: No Smoking Status: Never smoker Does the pt drink ETOH?: No Does the pt have substance abuse?: No - Immunizations Immunizations are current?: Yes - POLST Patient has POLST: No PD ED PE NORMAL - Vitals Vital signs reviewed: Yes - General General: Alert and oriented X 3, No acute distress, Well developed/nourished - Neck Neck: Supple, no meningeal sign, No adenopathy - Cardiac Cardiac: RRR, No murmur - Respiratory Respiratory: Clear bilaterally - Abdomen Abdomen: Normal bowel sounds, Soft, Non distended, No organomegaly, Other ( tender suprapubic and RLQ area without percussion nor rebound tenderness. Small abd muscle mass though. ) - Female Female : Deferred - Rectal Rectal: Deferred - Back Back: No CVA TTP - Derm Derm: Normal color, Warm and dry, No rash - Extremities Extremities: No deformity, No tenderness to palpate - Neuro Neuro: Alert and oriented X 3, No motor deficit, Normal speech Results - Vitals Vitals: Oxygen O2 Source Room air - Labs Labs: Laboratory Tests 08/15/17 08/15/17 08/15/17 13:26 13:26 13:26 WBC 6.6 RBC 3.86 L Hgb 12.1 Hct 35.2 L MCV 91.4 MCH 31.4 H MCHC 34.4 RDW 14.4 Plt Count 303 MPV 6.8 L Neut # 4.9 Lymph # 1.1 L [place] # 0.5 Eos # 0.1 Baso # 0.0 Absolute Nucleated RBC 0.00 Nucleated RBC % 0.0 Sodium 122 L Potassium 3.3 L Chloride 89 L Carbon Dioxide 23 Anion Gap 10.0 BUN 10 Creatinine 0.9 Estimated GFR (MDRD) 59 L Glucose 98 Lactic Acid 0.9 Calcium 9.1 Magnesium 1.6 L Total Bilirubin 0.5 AST 25 ALT 17 Alkaline Phosphatase 50 Total Protein 6.9 Albumin 4.1 Globulin 2.8 Albumin/Globulin Ratio 1.5 Lipase 28 - Rads (name of study) abd CT Radiology: Prelim report reviewed (no inflammation in appendix area. Multiple diverticula without obvious current diverticulitis. ) PD MEDICAL DECISION MAKING - ED course Complexity details: reviewed results (CT scan is okay. No appy and does have diverticula but no current -itis. However she has had pain c/w diverticulitis and on some oral abx, but causing vomiting. So seems likely partly treated. She is feeling better here with meds and prefers going home with different oral meds. I think she should still be on some abx for short time still, since was only on current abx for few days. ), considered differential, d/w patient, d/w family () Departure - Departure Disposition: 01 Home, Self Care Clinical Impression: Abdominal pain Qualifiers: Abdominal location: right lower quadrant Qualified Code(s): R10.31 - Right lower quadrant pain Diverticulitis Qualifiers: Diverticulitis site: large intestine Diverticulitis bleeding: without bleeding Diverticulitis complication: without perforation or abscess Qualified Code(s): K57.32 - Diverticulitis of large intestine without perforation or abscess without bleeding Medication side effect Qualifiers: Encounter type: initial encounter Qualified Code(s): T88.7XXA - Unspecified adverse effect of drug or medicament, initial encounter Condition: Stable Record reviewed to determine appropriate education?: Yes Instructions: ED Diverticulitis Follow-Up: Tyesha Zeng MD [Primary Care Provider] - Prescriptions: Amox/Clav 875/125 [Augmentin] 1 each PO BID #10 tablet Famotidine [Pepcid] 20 mg PO ONCE #15 tablet Ondansetron Odt [Zofran] 4 mg TL Q6H PRN #15 tablet PRN Reason: Nausea / Vomiting Comments: Your blood count and abdominal CT scan are good. There is no obvious diverticulitis or abscess. However your pain is consistent with the diverticulitis you have had in the past. The antibiotics that have been making you vomiting may still have decreased the infection to where it does not look obvious on the scan. However would make sense to continue antibiotics for a few more days. Stop the current antibiotics you are taking and have bland food initially along with an acid reducing medicine such as famotidine. Use ondansetron if needed for nausea. See how your stomach is doing and if you are tolerating foods and fluids well,'s direct Augmentin antibiotic tomorrow and continue that for for 5 more days. Recheck if recurrent symptoms or feeling worse. Tylenol 2 tablets 4 times a day for pain. Discharge Date/Time: 08/15/17 15:57
[2017-08-15] MEDS ORDERED: SODIUM CHLORIDE 0.9% 1,000 ML IV ONE (13:16)
[2017-08-15] MEDS ORDERED: ONDANSETRON 4 MG/2 ML VIAL IVP STA (13:16)
[2017-08-15] MEDS ORDERED: AMPICILLIN/SULBACTAM 3 GM in SODIUM CHLORIDE 0.9% MINIBAG 100 ML IV STA (13:18)
[2017-08-15] MEDS ORDERED: MORPHINE 2 MG/ML CARPUJECT IVP STA (13:19)
[2017-08-15 13:33] LABS: BASOPHILS % (AUTO) 0.5 %; EOSINOPHILS # (AUTO) 0.1 10^3/uL (0.0-0.7); EOSINOPHILS % (AUTO) 0.8 %; HGB - HEMOGLOBIN 12.1 g/dL (12.0-16.0); LYMPHOCYTES # (AUTO) 1.1 10^3/uL (1.5-3.5); MEAN CORPUSCULAR HEMOGLOBIN 31.4 pg (27.0-31.0); MEAN CORPUSCULAR HGB CONC 34.4 g/dL (32.0-36.0); MEAN CORPUSCULAR VOLUME 91.4 fL (81.0-99.0); MEAN PLATELET VOLUME 6.8 fL (7.9-10.8); MONOCYTES # (AUTO) 0.5 10^3/uL (0.0-1.0); MONOCYTES % (AUTO) 7.7 %; NEUTROPHILS # (AUTO) 4.9 10^3/uL (1.5-6.6); PLT - PLATELET COUNT 303 10^3/uL (130-450); RED BLOOD COUNT 3.86 10^6/uL (4.20-5.40); RED CELL DISTRIBUTION WIDTH 14.4 % (12.0-15.0); WHITE BLOOD COUNT 6.6 x10^3/uL (4.8-10.8)
[2017-08-15 13:46] LABS: ALBUMIN 4.1 g/dL (3.2-5.5); ALBUMIN/GLOBULIN RATIO 1.5 (1.0-2.2); BILIRUBIN,TOTAL 0.5 mg/dL (0.2-1.0); CALCIUM 9.1 mg/dL (8.5-10.3); CREATININE 0.9 mg/dL (0.4-1.0); MAGNESIUM 1.6 mg/dL (1.7-2.8); TOTAL PROTEIN 6.9 g/dL (6.7-8.2)
[2017-08-15] MEDS ORDERED: IOPAMIDOL-300 100 ML VIAL ONE (13:47)
[2017-08-15] MEDS ORDERED: IOPAMIDOL-300 100 ML VIAL IVP ONE (14:15)
--- NOTE | 2017-08-15 14:32 | CT Report ---
EXAM: CT ABDOMEN AND PELVIS EXAM DATE: 08/15/2017 02:13 PM. CLINICAL HISTORY: Lower/right abd pain for 4-5 days; h/o divertic. COMPARISONS: None. TECHNIQUE: Routine helical CT imaging was performed through the abdomen and pelvis. IV contrast: ISOV UE 300 100mL. Enteric contrast: No. Reconstructions: Coronal and sagittal. In accordance with CT protocol optimization, one or more of the following dose reduction techniques w ere utilized for this exam: automated exposure control, adjustment of mA and/or KV based on patient s ize, or use of iterative reconstructive technique. FINDINGS: Lung Bases: Mild interstitial prominence, probably chronic. No localized infiltrate, consolidation, e ffusion, or pneumothorax. Mild cardiomegaly. At least 3 vessel coronary artery calcification. Liver: Small cysts or hemangiomata. Otherwise unremarkable. Gallbladder/Bile Ducts: Surgically absent. Prominent common bile duct measuring up to 16 mm, of doubt ful clinical significance in this age group. No apparent obstructing lesion. No significant intrahepa tic ductal dilation. Spleen: Normal. Pancreas: Normal. Adrenal Glands: Normal. Kidneys: Small cysts. Otherwise unremarkable. No stone or hydronephrosis. Peritoneal Cavity/Bowel: Marked colonic diverticulosis. No free fluid, free air or adenopathy. No mas ses or acute inflammatory process. Unremarkable region of appendix. Pelvic Organs: Unremarkable urinary bladder. Absent uterus. Vasculature: No aneurysms or other significant abnormality. Bones: Left total hip prosthesis. Other: None. IMPRESSION: 1. Marked diverticulosis. 2. Coronary artery calcifications and other chronic or incidental findings. No definite acute disease . [facility] Referring Provider Line: [phone] SITE ID: [id number]
--- NOTE | 2017-08-15 14:32 | CT Preliminary Report ---
Exam: CT ABDOMEN/PELVIS W/ IMPRESSION: 1. Marked diverticulosis. 2. Coronary artery calcifications and other chronic or incidental findings. No definite acute disease . [facility] SITE ID: [id number]
[2017-08-15] MEDS ORDERED: KETOROLAC 60 MG/2 ML VIAL IVP STA (14:50)
[2017-08-15 15:56] VITALS: BP 170/72
== END 2017-08-15 15:57 | disposition home or self-care (01) ==
LOC: ED 10:59
DX: R10.31 Right lower quadrant pain (principal); K57.32 Diverticulitis of large intestine without perforation or abscess without bleeding; R11.2 Nausea with vomiting, unspecified; T36.4X5A Adverse effect of tetracyclines, initial encounter; I10 Essential (primary) hypertension; E78.00 Pure hypercholesterolemia, unspecified
CPT/HCPCS: 36415; 74177; 80053; 83605; 83690; 83735; 85025; 96365; 96375; 99283; 99284; Q9967